=== PATIENT | male | born 1960 | race Hispanic/Latino ===

== ENCOUNTER 2018-06-20 19:05 | Inpatient (IN) | payer MEDICAID ==
--- NOTE | 2018-06-20 19:43 | C.PDOC ---
History Of Present Illness 58 year old male with PMHx of chronic bilateral foot redness for 6 months presents to the ED for evaluation of new onset left upper and left lower extremity weakness since 03:00. Patient states he woke up and fell complete paralysis on both left arm and leg. Patient reports "I could not get out of bed and peed in myself". Patient states his strength is slowly improving throughout the day, left leg "better than before but not baseline". Patient states left arm "not getting as fast as leg" still with persistent weakness but improved from initial. Patient is a smoker. Patient denies fever, chills, nausea, vomit, headache, dizziness, trauma, injury, fall, numbness, history of HTN, DM. NEW ONSET LUE/LLE WEAKNESS SINCE 0300. PS AWOKE FELT COMPLETE PARALYSIS BOTH LEFT ARM AND LEG. "I COULND'T GET OUT OF BED AND PEED ON MYSELF". PS STRENGTH SLOWLY IMPROVING THROUGHOUT DAY, L LEG "BETTER THAN BEFORE BUT NOT AT BASELINE". PS L ARM "NOT GETTING BETTER FAST THE LEG" STILL W PERSIST WEAKNESS BUT IMPROVED FROM INITIAL. NO OTHER ASSOC SX. DENIES HO HTN, DM. +SMOKE, DENIES ETOH OR DRUG USE HO CHRONIC B/L FOOT REDNESS X 6 MO. NO ITCH. NO FEVER EXAM MOD DIST HEENT ATRAUM NEURO SEE [facility] SKIN B/L FEET TINEA PEDIS. EXT ATRAUM REMAINDER NEG Time Seen by Provider: 06/20/18 19:27 Chief Complaint (Nursing): Weakness/Neurological Deficit History Per: Patient History/Exam Limitations: no limitations Onset/Duration Of Symptoms: Hrs (03:00) Current Symptoms Are (Timing): Still Present Recent travel outside of the [place]: No Additional History Per: Patient Past Medical History Reviewed: Historical Data, Nursing Documentation, Vital Signs Vital Signs: Last Vital Signs Temp 98.3 F 06/20/18 19:16 Pulse 78 06/20/18 19:16 Resp 14 06/20/18 19:16 BP 136/84 06/20/18 19:16 Pulse Ox 97 06/20/18 19:16 - Medical History PMH: Asthma, Bipolar Disorder, Depression, Emphysema, HTN, Post Traumatic Stress Disorder, Seizures (alcoholic seziures) Surgical History: No Surg Hx - [facility] Procedures ALCOHOL DETOXIFICATION (09/04/13) OTHER GROUP THERAPY (03/04/13) Family History: States: Unknown Family Hx - Social History Hx Tobacco Use: Yes Hx Alcohol Use: Yes (stopped 5 years ago) Hx Substance Use: Yes - Immunization History Hx Tetanus Toxoid Vaccination: No Hx Influenza Vaccination: No Hx Pneumococcal Vaccination: No Review Of Systems Constitutional: Positive for: Weakness. Negative for: Fever, Chills Eyes: Negative for: Vision Change Cardiovascular: Negative for: Chest Pain, Palpitations Respiratory: Negative for: Shortness of Breath Gastrointestinal: Negative for: Nausea, Vomiting, Abdominal Pain Skin: Negative for: Rash Neurological: Positive for: Weakness. Negative for: Numbness, Headache, Dizziness Physical Exam - Physical Exam Appears: Non-toxic, Other (Moderate distress) Skin: Normal Color, Warm, Dry Head: Atraumatic, Normacephalic Eye(s): bilateral: Normal Inspection, PERRL, EOMI Ear(s): Bilateral: Normal Oral Mucosa: Moist Neck: Normal ROM, Supple Chest: Symmetrical Cardiovascular: Rhythm Regular Respiratory: Normal Breath Sounds, No Rales, No Rhonchi, No Wheezing Gastrointestinal/Abdominal: Soft, No Tenderness, No Guarding, No Rebound Extremity: Bilateral: Atraumatic, Other (bilateral feet tinea pedis) Pulses: Left Dorsalis Pedis: Normal, Right Dorsalis Pedis: Normal Neurological/Psych: Oriented x3, Normal Speech, Normal Cognition, No Normal Motor (right arm and leg normal. Left arm falls before 10 seconds, left leg drifts before 5 seconds), No Other (no limb ataxia) Gait: Steady ED Course And Treatment - Laboratory Results Result Diagrams: 06/20/18 20:08 06/20/18 20:08 O2 Sat by Pulse Oximetry: 97 (ON RA) Pulse Ox Interpretation: Normal - Radiology CXR: Interpreted by Me CXR Interpretation: Yes: No Acute Disease - CT Scan/US Ct head Other Rad Studies (CT/US): Read By Radiologist, Radiology Report Reviewed CT/US Interpretation: EXAM: CT Head without Intravenous Contrast. CLINICAL HISTORY: Left side body weakness. TECHNIQUE: Axial computed tomography images of the head/brain without intravenous contrast. 1169 mGy-cm. COMPARISON: None provided. FINDINGS: BRAIN. Several small hypodense areas in the right superior frontal white matter compatible with age-indeterminate infarcts, probably old. VENTRICLES: No hydrocephalus. ORBITS: The orbits are unremarkable. SINUSES AND MASTOIDS: The paranasal sinuses and mastoid air cells are clear. BONES: No fracture. SOFT TISSUES: Unremarkable. IMPRESSION: Several small hypodense areas in the right superior frontal white matter compatible with age-indeterminate infarcts, probably old. . Electronically signed on Jun 20, 2018 9:23:14 PM EST by: Cameron Victoria M.D., MBA Certified By ABR & CBCCT. Fellowship Trained MRI and CT Specialist CTa neck Other Rad Studies (CT/US): Read By Radiologist, Radiology Report Reviewed CT/US Interpretation: EXAM: CTA Head and Neck with Intravenous Contrast. CLINICAL HISTORY: Left side body weakness. TECHNIQUE: Axial CTA images of the head and neck performed with intravenous contrast. MIP reconstructed images were created and reviewed. 577 mGy-cm. CONTRAST: With; OMNI 350 100MLS was injected intravenously without incident. COMPARISON: None provided. FINDINGS: VASCULATURE: NECK: COMMON CAROTID ARTERIES. No significant canal stenosis. No dissection or occlusion. EXTERNAL CAROTID ARTERIES. Patent. NECK: IN TERNAL CAROTID ARTERIES. Note is made of occlusion of right ICA throughout its course at its origin at the bifurcation. VERTEBRAL ARTERIES. No significant canal stenosis. No dissection or occlusion. HEAD: ANTERIOR CEREBRAL ARTERIES. No significant stenosis. No occlusion. No aneurysm. MIDDLE CEREBRAL ARTERIES. No significant stenosis. No occlusion. No aneurysm. POSTERIOR CEREBRAL ARTERIES. No significant stenosis. No occlusion. No aneurysm. BASILAR ARTERY. No significant stenosis. No occlusion. No aneurysm. OTHER: SOFT TISSUES. No acute finding. BONES. No acute osseous abnormality. MISCELLANEOUS: Scattered upper lobe predominant emphysema is noted. Biapical confluent opacities are noted may represent pneumonia. IMPRESSION: 1. 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 2. Scattered upper lobe predominant emphysema is noted. 3. Biapical confluent opacities are noted may represent pneumonia. Discussed with Dr Medley 9-31pm EST. . Electronically signed on Jun 20, 2018 9:31:44 PM EST by: Cameron Victoria M.D., ATIF Certified By ABR & C BCCT. Fellowship Trained MRI and CT Specialist. NIHSS Stroke Scale - Date/Time Evaluation Performed Date Performed: 06/20/18 Time Performed: 19:39 When Was NIHSS Performed: Baseline - How Severe is the Stroke Level of Consciousness: 0=Alert LOC to Questions: 0=Both comments correct LOC to commands: 0=Obeys both correctly Best Gaze: 0=Normal Visual: 0=No visual loss Facial: 0=Normal Motor Arm - Left: 2=Falls before 10 sec Motor Arm - Right: 0=No drift Motor Leg - Left: 1=Drift before 5 sec Motor Leg - Right: 0=No drift Limb Ataxia: 0=Absent Sensory: 0=Normal Best Language: 0=No aphasia Dysarthia: 0=Normal articulation Extinction & Inattention (Neglect): 0=Normal, no object Score: 3 NIHSS Stroke Scale 2 - Date/Time Evaluation Performed Date Performed: 06/20/18 Time Performed: 21:56 When Was NIHSS Performed: Code Stroke Re-evaluation - How Severe is the Stroke Level of Consciousness: 0=Alert LOC to Questions: 0=Both comments correct LOC to commands: 0=Obeys both correctly Best Gaze: 0=Normal Visual: 0=No visual loss Facial: 0=Normal Motor Arm - Left: 2=Falls before 10 sec Motor Arm - Right: 0=No drift Motor Leg - Left: 1=Drift before 5 sec Motor Leg - Right: 0=No drift Limb Ataxia: 0=Absent Sensory: 0=Normal Best Language: 0=No aphasia Dysarthia: 0=Normal articulation Extinction & Inattention (Neglect): 0=Normal, no object Score: 3 Progress - Re-Evaluation Re-evaluation Note: 06/20/18 20:45 d/w dr buckley. CT PENDING. AWARE OF ER FINDINGS. PT NOT TPA CANDIDATE AT THIS TIME. 06/20/18 21:27 D/W [facility] RAD: +OCCLUSION R INT CAROTID; HYPODENSE R FRONTAL LOBE, CHRONIC INFARCT; 06/20/18 21:52 D/W DR Emilie LUNA MED SOCIAL SERVICE TECHNICIAN WILL ADMIT. CRESTOR 10 MG D/W DR BUCKLEY AWARE OF CT FINDINGS. NO HEPARIN, ADVISES ASA AND PLAVIX - Data Reviewed Data Reviewed: Lab, Diagnostic imaging, EKG - Critical Care Citical Care: Excluding Proc Time Critical Care Time: 90 minutes - Continuity of Care Discussed patient case with:: Patient, On-call PMD-pt unassigned rTPA Inclusion/Exclusion - Refusal of Treatment Patient Refused Treatment: No - Inclusion Criteria for Altepase Patient is 18 years or Older: Yes The Clinical Diagnosis of Ischemic Stroke That is Causing a Potentially Disabling Neurological Deficit: Yes Time of Onset is Well Established to be Less Than 270 Minute Before Treatment Would Begin: No Risk/Benefit Discussed With Patient/Family Member Present: Yes - Exclusion Criteria for Altepase Uncontrolled Hypertension at Time of Treatment (Systolic BP above 185 or Diastolic BP above 110 mmHg): No Active Internal Bleeding: No Known Bleeding Diathesis Including but Not Limited to: Platelets Below 100,000/mm,PTT Above 40 sec After Heparin Use, Current Use of Oral Anitcoagulant With INR Greater Than 1.7 or PT Greater Than 15 secs: No Evidence of an Intracranial Hemorrhage: No Evidence of Major Acute Infarct With Signs Greater Than 1/3 MCA Territory: No Suspicion of Subarachnoid Hemorrhage on Pretreatment Evaluation Even if CT Head Negative For Hemorrhage: No - Warning to TPA With Conditions Following Conditions Weighed Against Anticipated Benefit: Yes Condition: Stroke Serevity Too Mild, Rapid Improvement Medical Decision Making Medical Decision Making: Plan: * Labs * CT head * EKG * Labs * CXR * Aspirin 324 mg PO * IV fluids Disposition Counseled Patient/Family Regarding: Studies Performed, Diagnosis - Disposition Disposition: HOSPITALIZED Disposition Time: 21:55 Condition: SERIOUS - Clinical Impression Clinical Impression: CVA (cerebral vascular accident) - Scribe Statement The provider has reviewed the documentation as recorded by the Scribe Bo Silva All medical record entries made by the Scribe were at my direction and personally dictated by me. I have reviewed the chart and agree that the record accurately reflects my personal performance of the history, physical exam, medical decision making, and the department course for this patient. I have also personally directed, reviewed, and agree with the discharge instructions and disposition.
[2018-06-20 20:13] LABS: BASO # 0.1 K/uL (0.0-0.2); BASO % 0.9 % (0.0-2.0); EOS # 0.2 K/uL (0.0-0.7); EOS % 1.7 % (0.0-4.0); HEMOGLOBIN 14.1 g/dL (12.0-18.0); LYMPH # 2.8 K/uL (1.0-4.3); LYMPH % 25.2 % (20.0-40.0); MEAN CELL VOLUME 90.8 fL (80.0-94.0); MEAN CORPUSCULAR HGB CONC 35.2 g/dL (33.0-37.0); MEAN PLATELET VOLUME 6.4 fL (7.2-11.7); MONO # 0.9 K/uL (0.0-0.8); MONO % 8.3 % (0.0-10.0); NEUT % 63.9 % (50.0-75.0); NRBC % 0.1 % (0.0-2.0); RBC 4.4 Mil/uL (4.40-5.90)
[2018-06-20 20:22] LABS: PROTHROMBIN TIME 10.9 SECONDS (9.7-12.2)
[2018-06-20] MEDS ORDERED: Sodium Chloride 0.9% 1,000 ML ONE (20:22)
[2018-06-20] MEDS: Sodium Chloride 0.9% 1,000 ML IV SCH (20:22)
[2018-06-20 20:26] LABS: ALB/GLOB RATIO 1.3 (1.0-2.1); ALBUMIN 4.2 g/dL (3.5-5.0); ALT/SGPT 40 U/L (21-72); AST/SGOT 25 U/L (17-59); BLOOD UREA NITROGEN 16 mg/dL (9-20); CALCIUM 9.6 mg/dl (8.6-10.4); GFR NON-AFRICAN AMERICAN > 60; HDL CHOLESTEROL 46 mg/dL (30-70)
[2018-06-20 20:36] LABS: LDL CHOLESTEROL 160 mg/dL (0-129)
[2018-06-20] MEDS ORDERED: Iohexol 350mg/ml 100 ML ONE (20:44)
[2018-06-21 04:27] LABS: BASO # 0.1 K/uL (0.0-0.2); BASO % 0.9 % (0.0-2.0); EOS # 0.3 K/uL (0.0-0.7); EOS % 2.6 % (0.0-4.0); HEMOGLOBIN 13.7 g/dL (12.0-18.0); LYMPH # 3.3 K/uL (1.0-4.3); LYMPH % 33.8 % (20.0-40.0); MEAN CELL VOLUME 91.1 fL (80.0-94.0); MEAN CORPUSCULAR HEMOGLOBIN 31.8 pg (27.0-31.0); MEAN CORPUSCULAR HGB CONC 34.8 g/dL (33.0-37.0); MEAN PLATELET VOLUME 6.3 fL (7.2-11.7); MONO # 0.8 K/uL (0.0-0.8); MONO % 8.4 % (0.0-10.0); NEUT # 5.2 K/uL (1.8-7.0); NEUT % 54.3 % (50.0-75.0); RBC 4.32 Mil/uL (4.40-5.90); WHITE BLOOD COUNT 9.6 K/uL (4.8-10.8)
[2018-06-21 04:50] LABS: ALB/GLOB RATIO 1.4 (1.0-2.1); ALBUMIN 3.7 g/dL (3.5-5.0); ALT/SGPT 37 U/L (21-72); AST/SGOT 23 U/L (17-59); BLOOD UREA NITROGEN 11 mg/dL (9-20); CALCIUM 8.9 mg/dl (8.6-10.4); GFR NON-AFRICAN AMERICAN > 60
[2018-06-21] MEDS: Sodium Chloride 0.9% 1,000 ML IV SCH ×2 (08:00→16:00)
--- NOTE | 2018-06-21 10:49 | CT ---
Date of service: 06/20/2018 PROCEDURE: CT HEAD WITHOUT CONTRAST. HISTORY: L SIDED WEAKNESS COMPARISON: Correlation made with concurrent CTA neck and brain TECHNIQUE: Axial computed tomography images were obtained through the head/brain without intravenous contrast. Radiation dose: Total exam DLP = 1169.87 mGy-cm. This CT exam was performed using one or more of the following dose reduction techniques: Automated exposure control, adjustment of the mA and/or kV according to patient size, and/or use of iterative reconstruction technique. FINDINGS: HEMORRHAGE: No intracranial hemorrhage. BRAIN: There are small chronic appearing infarcts seen in the deep white matter right cerebral hemisphere (right centrum semiovale). Smaller ischemic changes also seen in the right frontal subcortical region. Note that the possibility of a small hyperacute infarct cannot be excluded on this study. Clinical correlation recommended Mild generalized volume loss. There are no obvious parenchymal nor extra-axial masses or collections seen on this noncontrast study. Mild vascular calcifications both carotid siphons. VENTRICLES: No the the obstructive hydrocephalus. CALVARIUM: Unremarkable. PARANASAL SINUSES: Unremarkable as visualized. No significant inflammatory changes. MASTOID AIR CELLS: Unremarkable as visualized. No inflammatory changes. OTHER FINDINGS: None. IMPRESSION: No acute intracranial hemorrhage. There are small chronic appearing infarcts seen in the deep white matter right cerebral hemisphere (right centrum semiovale). Smaller ischemic changes also seen in the right frontal subcortical region. Note that the possibility of a small hyperacute infarct cannot be excluded on this study. Clinical correlation recommended Mild generalized volume loss.
[2018-06-21] MEDS: Pantoprazole 40 mg EC Tab PO SCH (11:00)
--- NOTE | 2018-06-21 12:31 | CT ---
Date of service: 06/20/2018. PROCEDURE: CT Angiography of the neck and brain with contrast HISTORY: L SIDED WEAKNESS. COMPARISON: Comparison made with concurrent noncontrast CT scan of the brain. TECHNIQUE: Contiguous helical/transaxial images of the neck were obtained from the level of the skull-base to the superior mediastinum in the arteriographic phase of enhancement. Coronal and sagittal reformats or also generated. IV contrast dose: 100 cc Visipaque 320 Radiation dose: Total exam DLP = 577.05 mGy-cm. This CT exam was performed using one or more of the following dose reduction techniques: Automated exposure control, adjustment of the mA and/or kV according to patient size, and/or use of iterative reconstruction technique.. FINDINGS: The aortic arch is patent however there are minor calcified atherosclerotic plaque changes along the aortic arch as well as the origins of the great vessels which are also patent. CAROTID ARTERIES: The right common carotid artery is patent however there is partially calcified atherosclerotic plaque at the level of the carotid bifurcation with complete occlusion of the right internal carotid artery.. The The left common carotid artery is also patent. There is calcified atherosclerotic plaque seen at the left carotid bifurcation-proximal left internal carotid artery which results in approximately 55-50 % diameter narrowing.. The left internal carotid artery is patent.. There is mild moderate partially calcified plaque at the level of the left carotid siphon. VERTEBRAL ARTERIES: The right and left vertebral arteries are patent and appear codominant throughout. Basilar artery is patent. OTHER FINDINGS: The right supraclinoid carotid artery is occluded however there is opacification of both A1 segments as well as the anterior communicating artery. The A2 segments are also patent and appear relatively symmetric. There is minor asymmetry of the M1 segments left-sided which is slightly larger in caliber than the right side. The distal branches of the middle cerebral arteries appear patent and relatively symmetric as well. The posterior cerebral arteries are patent and also appear relatively symmetric. No evidence of large aneurysm nor vascular malformation. Centrilobular emphysematous changes seen in the lung apices and upper lung berg. Note made of a small approximately 5 mm somewhat translucent appearing nodular opacity in the right lung apex nonspecific though could be postinflammatory. 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 Partially calcified plaque left carotid bifurcation-proximal left internal carotid artery which results in narrowing approximately 52-50 5 percent %percent%. [id number] partially calcified atherosclerotic plaque left carotid siphon. The visualized intra the cerebral circulation is patent. No evidence of large aneurysm nor vascular malformation. 5 mm somewhat translucent appearing nodular opacity in the right lung apex nonspecific though could be postinflammatory. Follow-up nonemergent CT scan of the chest recommended for further evaluation Centrilobular emphysematous changes seen in the upper lung berg. Note this report was placed in [facility] review folder for follow up.
[2018-06-21] MEDS ORDERED: Enoxaparin 40 mg Syringe SC SCH (12:45)
--- NOTE | 2018-06-21 13:58 | CP.PCM.CON ---
History of Present Illness - History of Present Illness History of Present Illness: Neurology Consultation Note: Mr. Shin is a 58-year-old man with a past medical history of Asthma, Bipol ar Disorder, Depression, Emphysema, HTN, Post Traumatic Stress Disorder, Seizures (alcoholic seziures), who presented to the ED in the AM after waking up with left side weakness. He was last normal the previous night, but had been having some left side weakness intermittently for several days. A non-contrast CT scan of the head was done and showed chronic right cerebral infarcts. CTA of the head/neck showed complete right ICA occlusion. He was not a candidate for IV tPA due to being outside the time window and was not a candidate for thrombectomy due to infarcts appearing on CT head in right cerebral region that were likely chronic or subacute. Today, the patient is significantly improved and is able to move his left side with more strength. He still has some sensory changes. Review of Systems - Constitutional Constitutional: As Per HPI - EENT Eyes: Loss of Vision Ears: absent: As Per HPI, Decreased Hearing, Ear Discharge, Ear Pain, Tinnitus, Abnormal Hearing, Disequilibrium, Dizziness, Other Nose/Mouth/Throat: absent: As Per HPI, Epistaxis, Nasal Congestion, Nasal Discharge, Nasal Obstruction, Nasal Trauma, Nose Pain, Post Nasal Drip, Sinus Pain, Sinus Pressure, Bleeding Gums, Change in Voice, Dental Pain, Dry Mouth, D ysphagia, Halitosis, Hoarsness, Lip Swelling, Mouth Lesions, Mouth Pain, Odynophagia, Sore Throat, Throat Swelling, Tongue Swelling, Facial Pain, Neck Pain, Neck Mass, Other - Cardiovascular Cardiovascular: absent: As Per HPI, Acrocyanosis, Chest Pain, Chest Pain at Rest, Chest Pain with Activity, Claudication, Diaphoresis, Dyspnea, Dyspnea on Exertion, Edema, Irregular Heart Rhythm, Pain Radiating to Arm/Neck/Jaw, Leg Edema, Leg Ulcers, Lightheadedness, Orthopnea, Palpitations, Paroxysmal Nocturnal Dyspnea, Pedal Edema, Radiating Pain, Rapid Heart Rate, Slow Heart Rate, Syncope, Other - Respiratory Respiratory: absent: As Per HPI, Cough, Dyspnea, Hemoptysis, Dyspnea on Exertion, Wheezing, Snoring, Stridor, Pain on Inspiration, Chest Congestion, Excessive Mucous Production, Change in Mucous Color, Pain with Coughing, Other - Gastrointestinal Gastrointestinal: absent: As Per HPI, Abdominal Pain, Belching, Bloating, Change in Bowel Habits, Change in Stool Character, Coffee Ground Emesis, Constipation, Cramping, Diarrhea, Dyspepsia, Dysphagia, Early Satiety, Excessive Flatus, Fecal Incontinence, Heartburn, Hematemesis, Hematochezia, Loose Stools, Melena, Nausea, Odynophagia, Temesmus, Vomiting, Other - Genitourinary Genitourinary: absent: Change in Urinary Stream, Difficulty Urinating, Dysuria, Flank Pain, Hematuria, Pyuria, Nocturia, Urinary Incontinence, Urinary Frequency, Urinary Hesitance, Urinary Urgency, Voiding Freq/Small Amts, Freq UTI, Hx Renal/Bladder Calculi, Hx /Renal Surgery, Bladder Distension, Other - Musculoskeletal Musculoskeletal: absent: As Per HPI, Abnormal Gait, Arthralgias, Atrophy, Back Pain, Deformity, Joint Swelling, Limited Range of Motion, Loss of Height, Muscle Cramps, Muscle Weakness, Myalgias, Neck Pain, Numbness, Radiating Pain into Limb, Stiffness, Tingling, Other - Integumentary Integumentary: absent: As Per HPI, Acne, Alopecia, Bleeding Lesions, Change in Hair, Change in Nails, Change in Pigmentation, Changing Lesions, Dry Skin, Erythema, Furuncle, Hirsutism, Lesions, New Lesions, Non-Healing Lesions, Photosensitivity, Pruritus, Rash, Skin Pain, Skin Ulcer, Sores, Striae, Swelling, Unusual Bruising, Wounds, Jaundice, Other - Neurological Neurological: As Per HPI - Psychiatric Psychiatric: absent: As Per HPI, Abnormal Sleep Pattern, Anhedonia, Anxiety, Auditory Hallucinations, Behavioral Changes, Change in Appetite, Change in Libido, Confusion, Depression, Difficulty Concentrating, Hallucinations, Homicidal Ideation, Hopelessness, Irritability, Memory Loss, Mood Swings, Panic Attacks, Paranoia, Suicidal Ideation, Visual Hallucinations, Tactile Hallucinations, Other - Endocrine Endocrine: absent: As Per HPI, Change in Body Appearance, Change in Libido, Cold Intolorance, Deepening of Voice, Excessive Sweating, Fatigue, Flushing, Heat Intolorance, Increase in Ring/Shoe/Hat Size, Palpitations, Polydipsia, Polyphagia, Polyuria, Other - Hematologic/Lymphatic Hematologic: absent: As Per HPI, Easy Bleeding, Easy Bruising, Lymphadenopathy, Other Past Patient History - Past Social History Smoking Status: Heavy Smoker > 10 Cigarettes Daily - CARDIAC Hx Hypertension: Yes - PULMONARY Hx Asthma: Yes Hx Emphysema: Yes - NEUROLOGICAL Hx Seizures: Yes (alcoholic seziures) - HEMATOLOGICAL/ONCOLOGICAL Hx Cancer: No - MUSCULOSKELETAL/RHEUMATOLOGICAL Hx Falls: No - GASTROINTESTINAL Other/Comment: RECTAL BLEEDING - PSYCHIATRIC Hx Substance Use: Yes (cannobis) - SURGICAL HISTORY Hx Surgeries: Yes Hx Orthopedic Surgery: Yes (RIGHT 4TH FINGER) Meds Allergies/Adverse Reactions: Allergies Allergy/AdvReac Type Severity Reaction Status Date / Time No Known Allergies Allergy Verified 06/20/18 19:21 - Medications Medications: Current Medications Aspirin (Aspirin) 325 mg PO DAILY [facility] Last Admin: 06/21/18 13:12 Dose: 325 mg Clopidogrel Bisulfate (Plavix) 75 mg PO DAILY [facility] Last Admin: 06/21/18 13:12 Dose: 75 mg Heparin Sodium (Porcine) (Heparin) 5,000 units SC Q12 [facility] Last Admin: 06/21/18 11:00 Dose: 5,000 units Sodium Chloride (Sodium Chloride 0.9%) 1,000 mls @ 100 mls/hr IV .Q10H [facility] Last Admin: 06/21/18 08:00 Dose: 100 mls/hr Pantoprazole Sodium (Protonix Ec Tab) 40 mg PO DAILY [facility] Last Admin: 06/21/18 11:00 Dose: 40 mg Pneumococcal Polyvalent Vaccine (Pneumovax 23 Vaccine) 0.5 ml IM .ONCE ONE Stop: 06/23/18 10:01 Rosuvastatin Calcium (Crestor) 10 mg PO [facility] Physical Exam - Constitutional Appears: Well - Head Exam Head Exam: ATRAUMATIC, NORMAL INSPECTION, NORMOCEPHALIC - Eye Exam Eye Exam: EOMI, Normal appearance, PERRL Pupil Exam: NORMAL ACCOMODATION, PERRL - ENT Exam ENT Exam: Mucous Membranes Moist, Normal Exam - Neck Exam Neck exam: Positive for: Normal Inspection - Respiratory Exam Respiratory Exam: Clear to Auscultation Bilateral, NORMAL BREATHING PATTERN - Cardiovascular Exam Cardiovascular Exam: Bradycardia, +S1, +S2 - GI/Abdominal Exam GI & Abdominal Exam: Normal Bowel Sounds, Soft. absent: Tenderness - Rectal Exam Rectal Exam: Deferred - Extremities Exam Extremities exam: Positive for: normal inspection - Back Exam Back exam: NORMAL INSPECTION - Neurological Exam Neurological exam: Abnormal Gait, Alert, CN II-XII Intact, Oriented x3 Additional comments: Slight left side weakness with slight sensory change. Reflexes brisk on the left. NIHSS of 3. Results - Vital Signs Recent Vital Signs: Last Vital Signs Temp 97.5 F L 06/21/18 12:07 Pulse 69 06/21/18 12:07 Resp 20 06/21/18 12:07 BP 174/88 H 06/21/18 12:07 Pulse Ox 96 06/21/18 12:07 - Labs Result Diagrams: 06/21/18 04:17 06/21/18 04:17 Labs: Laboratory Results - last 24 hr 06/20/18 06/20/18 06/20/18 20:08 20:08 20:08 WBC 11.0 H RBC 4.40 Hgb 14.1 Hct 40.0 MCV 90.8 D MCH 32.0 H MCHC 35.2 RDW 14.0 Plt Count 288 MPV 6.4 L Neut % (Auto) 63.9 Lymph % (Auto) 25.2 [place] % (Auto) 8.3 Eos % (Auto) 1.7 Baso % (Auto) 0.9 Neut # (Auto) 7.0 Lymph # (Auto) 2.8 [place] # (Auto) 0.9 H Eos # (Auto) 0.2 Baso # (Auto) 0.1 PT 10.9 INR 1.0 APTT 38 H Sodium 139 Potassium 4.3 Chloride 105 Carbon Dioxide 24 Anion Gap 14 BUN 16 Creatinine 0.8 Est GFR ( Amer) > 60 Est GFR (Non-Af Amer) > 60 Random Glucose 96 Hemoglobin A1c Calcium 9.6 Total Bilirubin 0.4 AST 25 ALT 40 Alkaline Phosphatase 82 Troponin I < 0.0120 Total Protein 7.2 Albumin 4.2 Globulin 3.1 Albumin/Globulin Ratio 1.3 Triglycerides 195 H Cholesterol 234 H LDL Cholesterol Direct 160 H HDL Cholesterol 46 Blood Type Antibody Screen 06/20/18 06/20/18 06/21/18 20:08 20:08 04:17 WBC RBC Hgb Hct MCV MCH MCHC RDW Plt Count MPV Neut % (Auto) Lymph % (Auto) [place] % (Auto) Eos % (Auto) Baso % (Auto) Neut # (Auto) Lymph # (Auto) [place] # (Auto) Eos # (Auto) Baso # (Auto) PT INR APTT Sodium 140 Potassium 3.7 Chloride 106 Carbon Dioxide 26 Anion Gap 11 BUN 11 Creatinine 0.7 L Est GFR ( Amer) > 60 Est GFR (Non-Af Amer) > 60 Random Glucose 108 Hemoglobin A1c 5.6 Calcium 8.9 Total Bilirubin 0.5 AST 23 ALT 37 Alkaline Phosphatase 70 Troponin I Total Protein 6.5 Albumin 3.7 Globulin 2.8 Albumin/Globulin Ratio 1.4 Triglycerides Cholesterol LDL Cholesterol Direct HDL Cholesterol Blood Type O NEGATIVE Antibody Screen Negative 06/21/18 04:17 WBC 9.6 RBC 4.32 L Hgb 13.7 Hct 39.3 MCV 91.1 MCH 31.8 H MCHC 34.8 RDW 14.0 Plt Count 282 MPV 6.3 L Neut % (Auto) 54.3 Lymph % (Auto) 33.8 [place] % (Auto) 8.4 Eos % (Auto) 2.6 Baso % (Auto) 0.9 Neut # (Auto) 5.2 Lymph # (Auto) 3.3 [place] # (Auto) 0.8 Eos # (Auto) 0.3 Baso # (Auto) 0.1 PT INR APTT Sodium Potassium Chloride Carbon Dioxide Anion Gap BUN Creatinine Est GFR ( Amer) Est GFR (Non-Af Amer) Random Glucose Hemoglobin A1c Calcium Total Bilirubin AST ALT Alkaline Phosphatase Troponin I Total Protein Albumin Globulin Albumin/Globulin Ratio Triglycerides Cholesterol LDL Cholesterol Direct HDL Cholesterol Blood Type Antibody Screen Assessment & Plan (1) CVA (cerebral vascular accident) Assessment and Plan: May be due to underlying medical problems, or could be due to underlying cardiac disease. The right carotid appears to be chronically occluded. This is likely due to his chronic smoking of about 40 pack-years. I recommend the followin. Telemetry 2. MRI brain without contrast 3. Echocardiogram with bubble study 4. Fluids with NS at 100 mL/hr 5. Check lipid panel, HbA1c, B12, folate, vitamin D levels, homocysteine levels 6. PT/OT eval and treatment 7. Load with Plavix 300 mg once, and continue 75 mg daily along with Aspirin 81 mg daily 8. Case management consult Thank you for this consultation. Status: Acute
--- NOTE | 2018-06-21 14:09 | CP.PCM.HP ---
Past Patient History - Past Social History Smoking Status: Heavy Smoker > 10 Cigarettes Daily - CARDIAC Hx Hypertension: Yes - PULMONARY Hx Asthma: Yes Hx Emphysema: Yes - NEUROLOGICAL Hx Seizures: Yes (alcoholic seziures) - HEMATOLOGICAL/ONCOLOGICAL Hx Cancer: No - MUSCULOSKELETAL/RHEUMATOLOGICAL Hx Falls: No - GASTROINTESTINAL Other/Comment: RECTAL BLEEDING - PSYCHIATRIC Hx Substance Use: Yes (cannobis) - SURGICAL HISTORY Hx Surgeries: Yes Hx Orthopedic Surgery: Yes (RIGHT 4TH FINGER) Meds Allergies/Adverse Reactions: Allergies Allergy/AdvReac Type Severity Reaction Status Date / Time No Known Allergies Allergy Verified 06/20/18 19:21 Physical Exam - Constitutional Appears: Well - Head Exam Head Exam: ATRAUMATIC, NORMAL INSPECTION, NORMOCEPHALIC - Eye Exam Eye Exam: EOMI, Normal appearance, PERRL Pupil Exam: NORMAL ACCOMODATION, PERRL - ENT Exam ENT Exam: Mucous Membranes Moist, Normal Exam - Neck Exam Neck exam: Positive for: Normal Inspection - Respiratory Exam Respiratory Exam: Decreased Breath Sounds - Cardiovascular Exam Cardiovascular Exam: REGULAR RHYTHM, +S1, +S2 - GI/Abdominal Exam GI & Abdominal Exam: Diminished Bowel Sounds, Soft - Rectal Exam Rectal Exam: Deferred Results - Vital Signs Recent Vital Signs: Last Vital Signs Temp 97.5 F L 06/21/18 12:07 Pulse 69 06/21/18 12:07 Resp 20 06/21/18 12:07 BP 174/88 H 06/21/18 12:07 Pulse Ox 96 06/21/18 12:07 - Labs Result Diagrams: 06/21/18 04:17 06/21/18 04:17 Labs: Laboratory Results - last 24 hr 06/20/18 06/20/18 06/20/18 20:08 20:08 20:08 WBC 11.0 H RBC 4.40 Hgb 14.1 Hct 40.0 MCV 90.8 D MCH 32.0 H MCHC 35.2 RDW 14.0 Plt Count 288 MPV 6.4 L Neut % (Auto) 63.9 Lymph % (Auto) 25.2 [place] % (Auto) 8.3 Eos % (Auto) 1.7 Baso % (Auto) 0.9 Neut # (Auto) 7.0 Lymph # (Auto) 2.8 [place] # (Auto) 0.9 H Eos # (Auto) 0.2 Baso # (Auto) 0.1 PT 10.9 INR 1.0 APTT 38 H Sodium 139 Potassium 4.3 Chloride 105 Carbon Dioxide 24 Anion Gap 14 BUN 16 Creatinine 0.8 Est GFR ( Amer) > 60 Est GFR (Non-Af Amer) > 60 Random Glucose 96 Hemoglobin A1c Calcium 9.6 Total Bilirubin 0.4 AST 25 ALT 40 Alkaline Phosphatase 82 Troponin I < 0.0120 Total Protein 7.2 Albumin 4.2 Globulin 3.1 Albumin/Globulin Ratio 1.3 Triglycerides 195 H Cholesterol 234 H LDL Cholesterol Direct 160 H HDL Cholesterol 46 Blood Type Antibody Screen 06/20/18 06/20/18 06/21/18 20:08 20:08 04:17 WBC RBC Hgb Hct MCV MCH MCHC RDW Plt Count MPV Neut % (Auto) Lymph % (Auto) [place] % (Auto) Eos % (Auto) Baso % (Auto) Neut # (Auto) Lymph # (Auto) [place] # (Auto) Eos # (Auto) Baso # (Auto) PT INR APTT Sodium 140 Potassium 3.7 Chloride 106 Carbon Dioxide 26 Anion Gap 11 BUN 11 Creatinine 0.7 L Est GFR ( Amer) > 60 Est GFR (Non-Af Amer) > 60 Random Glucose 108 Hemoglobin A1c 5.6 Calcium 8.9 Total Bilirubin 0.5 AST 23 ALT 37 Alkaline Phosphatase 70 Troponin I Total Protein 6.5 Albumin 3.7 Globulin 2.8 Albumin/Globulin Ratio 1.4 Triglycerides Cholesterol LDL Cholesterol Direct HDL Cholesterol Blood Type O NEGATIVE Antibody Screen Negative 06/21/18 04:17 WBC 9.6 RBC 4.32 L Hgb 13.7 Hct 39.3 MCV 91.1 MCH 31.8 H MCHC 34.8 RDW 14.0 Plt Count 282 MPV 6.3 L Neut % (Auto) 54.3 Lymph % (Auto) 33.8 [place] % (Auto) 8.4 Eos % (Auto) 2.6 Baso % (Auto) 0.9 Neut # (Auto) 5.2 Lymph # (Auto) 3.3 [place] # (Auto) 0.8 Eos # (Auto) 0.3 Baso # (Auto) 0.1 PT INR APTT Sodium Potassium Chloride Carbon Dioxide Anion Gap BUN Creatinine Est GFR ( Amer) Est GFR (Non-Af Amer) Random Glucose Hemoglobin A1c Calcium Total Bilirubin AST ALT Alkaline Phosphatase Troponin I Total Protein Albumin Globulin Albumin/Globulin Ratio Triglycerides Cholesterol LDL Cholesterol Direct HDL Cholesterol Blood Type Antibody Screen
--- NOTE | 2018-06-21 14:38 | RAD ---
Date of service: 06/20/2018 HISTORY: Code Stroke COMPARISON: Comparison chest dated 09/28/2013 FINDINGS: LUNGS: No active pulmonary disease. PLEURA: No significant pleural effusion identified, no pneumothorax apparent. Minor biapical pleural thickening CARDIOVASCULAR: No aortic atherosclerotic calcification present.. Normal cardiac size. No pulmonary vascular congestion. OSSEOUS STRUCTURES: No significant abnormalities. VISUALIZED UPPER ABDOMEN: Normal. OTHER FINDINGS: None. IMPRESSION: No active disease.
--- NOTE | 2018-06-21 17:39 | CP.PCM.CON ---
History of Present Illness - History of Present Illness History of Present Illness: 58 y/o with acute R. sided CVA CT head : R. cerebral infarcts; occluded MONTSE and moderate LICA disease: now on DAPT PMHX: Asthma, Bipolar Disorder, Depression, Emphysema, HTN, Post Traumatic Stress Disorder, Seizures (alcoholic seziures) SOCHX: 40 pack year smoking Past Patient History - Past Medical History & Family History Past Medical History?: Yes - Past Social History Smoking Status: Heavy Smoker > 10 Cigarettes Daily - CARDIAC Hx Hypertension: Yes - PULMONARY Hx Asthma: Yes Hx Emphysema: Yes - NEUROLOGICAL Hx Seizures: Yes (alcoholic seziures) - HEENT Hx Blind: Yes (periods of blindness) - RENAL Hx Chronic Kidney Disease: Yes - ENDOCRINE/METABOLIC Hx Endocrine Disorders: Yes - HEMATOLOGICAL/ONCOLOGICAL Hx Cancer: No - INTEGUMENTARY Hx Dermatological Problems: No - MUSCULOSKELETAL/RHEUMATOLOGICAL Hx Falls: No - GASTROINTESTINAL Other/Comment: RECTAL BLEEDING - PSYCHIATRIC Hx Substance Use: Yes (cannobis) - SURGICAL HISTORY Hx Surgeries: Yes Hx Orthopedic Surgery: Yes (RIGHT 4TH FINGER) - ANESTHESIA Hx Anesthesia: Yes Meds Allergies/Adverse Reactions: Allergies Allergy/AdvReac Type Severity Reaction Status Date / Time No Known Allergies Allergy Verified 06/20/18 19:21 - Medications Medications: Current Medications Aspirin (Aspirin) 325 mg PO DAILY [facility] Last Admin: 06/21/18 13:12 Dose: 325 mg Clopidogrel Bisulfate (Plavix) 75 mg PO DAILY [facility] Last Admin: 06/21/18 13:12 Dose: 75 mg Heparin Sodium (Porcine) (Heparin) 5,000 units SC Q12 [facility] Last Admin: 06/21/18 11:00 Dose: 5,000 units Sodium Chloride (Sodium Chloride 0.9%) 1,000 mls @ 100 mls/hr IV .Q10H [facility] Last Admin: 06/21/18 16:00 Dose: Not Given Pantoprazole Sodium (Protonix Ec Tab) 40 mg PO DAILY [facility] Last Admin: 06/21/18 11:00 Dose: 40 mg Pneumococcal Polyvalent Vaccine (Pneumovax 23 Vaccine) 0.5 ml IM .ONCE ONE Stop: 06/23/18 10:01 Rosuvastatin Calcium (Crestor) 10 mg PO [facility] Physical Exam - Constitutional Appears: No Acute Distress - Head Exam Head Exam: ATRAUMATIC, NORMAL INSPECTION, NORMOCEPHALIC - Eye Exam Eye Exam: EOMI, Normal appearance, PERRL - ENT Exam ENT Exam: Mucous Membranes Moist, Normal Oropharynx - Neck Exam Neck exam: Positive for: Full Rom, Normal Inspection. Negative for: Tenderness - Respiratory Exam Respiratory Exam: Clear to Auscultation Bilateral. absent: Rhonchi, Wheezes - Cardiovascular Exam Cardiovascular Exam: REGULAR RHYTHM, +S1, +S2. absent: Systolic Murmur - GI/Abdominal Exam GI & Abdominal Exam: Normal Bowel Sounds, Soft. absent: Tenderness - Extremities Exam Extremities exam: Positive for: calf tenderness, normal inspection. Negative for: pedal edema, pedal pulses present - Neurological Exam Neurological exam: Alert, Oriented x3 - Psychiatric Exam Psychiatric exam: Normal Affect, Normal Mood - Skin Skin Exam: Normal Color, Warm Results - Vital Signs Recent Vital Signs: Last Vital Signs Temp 97.8 F 06/21/18 15:58 Pulse 65 06/21/18 15:58 Resp 20 06/21/18 15:58 BP 161/81 H 06/21/18 15:58 Pulse Ox 95 06/21/18 15:58 - Labs Result Diagrams: 06/21/18 04:17 06/21/18 04:17 Labs: Laboratory Results - last 24 hr 06/20/18 06/20/18 06/20/18 20:08 20:08 20:08 WBC 11.0 H RBC 4.40 Hgb 14.1 Hct 40.0 MCV 90.8 D MCH 32.0 H MCHC 35.2 RDW 14.0 Plt Count 288 MPV 6.4 L Neut % (Auto) 63.9 Lymph % (Auto) 25.2 [place] % (Auto) 8.3 Eos % (Auto) 1.7 Baso % (Auto) 0.9 Neut # (Auto) 7.0 Lymph # (Auto) 2.8 [place] # (Auto) 0.9 H Eos # (Auto) 0.2 Baso # (Auto) 0.1 PT 10.9 INR 1.0 APTT 38 H Sodium 139 Potassium 4.3 Chloride 105 Carbon Dioxide 24 Anion Gap 14 BUN 16 Creatinine 0.8 Est GFR ( Amer) > 60 Est GFR (Non-Af Amer) > 60 Random Glucose 96 Hemoglobin A1c Calcium 9.6 Total Bilirubin 0.4 AST 25 ALT 40 Alkaline Phosphatase 82 Troponin I < 0.0120 Total Protein 7.2 Albumin 4.2 Globulin 3.1 Albumin/Globulin Ratio 1.3 Triglycerides 195 H Cholesterol 234 H LDL Cholesterol Direct 160 H HDL Cholesterol 46 Blood Type Antibody Screen 06/20/18 06/20/18 06/21/18 20:08 20:08 04:17 WBC RBC Hgb Hct MCV MCH MCHC RDW Plt Count MPV Neut % (Auto) Lymph % (Auto) [place] % (Auto) Eos % (Auto) Baso % (Auto) Neut # (Auto) Lymph # (Auto) [place] # (Auto) Eos # (Auto) Baso # (Auto) PT INR APTT Sodium 140 Potassium 3.7 Chloride 106 Carbon Dioxide 26 Anion Gap 11 BUN 11 Creatinine 0.7 L Est GFR ( Amer) > 60 Est GFR (Non-Af Amer) > 60 Random Glucose 108 Hemoglobin A1c 5.6 Calcium 8.9 Total Bilirubin 0.5 AST 23 ALT 37 Alkaline Phosphatase 70 Troponin I Total Protein 6.5 Albumin 3.7 Globulin 2.8 Albumin/Globulin Ratio 1.4 Triglycerides Cholesterol LDL Cholesterol Direct HDL Cholesterol Blood Type O NEGATIVE Antibody Screen Negative 06/21/18 06/21/18 04:17 16:25 WBC 9.6 RBC 4.32 L Hgb 13.7 Hct 39.3 MCV 91.1 MCH 31.8 H MCHC 34.8 RDW 14.0 Plt Count 282 MPV 6.3 L Neut % (Auto) 54.3 Lymph % (Auto) 33.8 [place] % (Auto) 8.4 Eos % (Auto) 2.6 Baso % (Auto) 0.9 Neut # (Auto) 5.2 Lymph # (Auto) 3.3 [place] # (Auto) 0.8 Eos # (Auto) 0.3 Baso # (Auto) 0.1 PT INR APTT Sodium Potassium Chloride Carbon Dioxide Anion Gap BUN Creatinine Est GFR ( Amer) Est GFR (Non-Af Amer) Random Glucose Hemoglobin A1c Calcium Total Bilirubin AST ALT Alkaline Phosphatase Troponin I < 0.0120 Total Protein Albumin Globulin Albumin/Globulin Ratio Triglycerides Cholesterol LDL Cholesterol Direct HDL Cholesterol Blood Type Antibody Screen - EKG Data EKG Interpreted by: Myself Assessment & Plan - Assessment and Plan (Free Text) Assessment: 58 y/o smoker, HTN with acute R. sided CVA and complete occlusion of MONTSE and moderate LICA disease EKG: NSR CXR: no congestion, clear lung berg Labs: Normal H/H; Normal creat ; Inc LDL 160 ; inc TRG 195 transient episode of CP atypical ~4:50 pm: ekg normal, f/u troponin negative x3 thus far. No suspicion for ACS or angina but given CAD Rf's and ASCVD cannot exclude: f/u echo for wall motion. LUE strength appears improved 4/5 probably suggestive of chronic MONTSE and poor collateral with ASVD Plan: ECHO with bubble study ordered along B/L LE DPV to r/o DVT Monitor for arrythmia permissive HTN per neurology High intensity statin therapy Consider vascepa 2gm BID Cont DAPT -> spoke with neuro; agree to load 300mg x1 then 75 daily DVT prophylaxis Will need cardio w/u as an outpatient after CVA rehab
[2018-06-22] MEDS: Sodium Chloride 0.9% 1,000 ML IV SCH ×4 (04:00→22:00)
[2018-06-22 07:01] LABS: LDL CHOLESTEROL 147 mg/dL (0-129)
[2018-06-22 07:08] LABS: BLOOD UREA NITROGEN 11 mg/dL (9-20)
[2018-06-22 07:11] LABS: ALBUMIN 3.9 g/dL (3.5-5.0); ALT/SGPT 38 U/L (21-72); AST/SGOT 24 U/L (17-59); CALCIUM 8.8 mg/dl (8.6-10.4); GFR NON-AFRICAN AMERICAN > 60; HDL CHOLESTEROL 38 mg/dL (30-70)
[2018-06-22 07:22] LABS: BASO # 0.1 K/uL (0.0-0.2); BASO % 0.6 % (0.0-2.0); EOS # 0.2 K/uL (0.0-0.7); EOS % 2.2 % (0.0-4.0); HEMOGLOBIN 14.7 g/dL (12.0-18.0); LYMPH # 2.5 K/uL (1.0-4.3); LYMPH % 30.7 % (20.0-40.0); MEAN CELL VOLUME 90.9 fL (80.0-94.0); MEAN CORPUSCULAR HEMOGLOBIN 32.4 pg (27.0-31.0); MEAN CORPUSCULAR HGB CONC 35.7 g/dL (33.0-37.0); MEAN PLATELET VOLUME 6.3 fL (7.2-11.7); MONO # 0.6 K/uL (0.0-0.8); MONO % 7.2 % (0.0-10.0); NEUT # 4.8 K/uL (1.8-7.0); NEUT % 59.3 % (50.0-75.0); NRBC % 0.1 % (0.0-2.0); RBC 4.54 Mil/uL (4.40-5.90); RED CELL DISTRIBUTION WIDTH 13.9 % (11.5-14.5); WHITE BLOOD COUNT 8.2 K/uL (4.8-10.8)
[2018-06-22 08:16] LABS: ALB/GLOB RATIO 1.5 (1.0-2.1)
[2018-06-22] MEDS: Pantoprazole 40 mg EC Tab PO SCH (09:58)
--- NOTE | 2018-06-22 10:36 | CP.PCM.PN ---
<Edel Quintana - Last Filed: 06/22/18 15:04> Subjective - Date & Time of Evaluation Date of Evaluation: 06/22/18 Time of Evaluation: 09:00 - Subjective Subjective: Neurology Follow Up Note Patient was seen and examined at bedside. Patient reports he has been having left lower extremity weakness for several months intermittently. He reports he had difficulty ambulating to the bathroom, and feels unsteady on his feet. ROS unremarkable, unless otherwise noted. Objective - Vital Signs/Intake and Output Vital Signs (last 24 hours): Temp Pulse Resp BP Pulse Ox 98.2 F 69 20 154/73 H 99 06/22/18 07:35 06/22/18 08:09 06/22/18 07:35 06/22/18 07:35 06/22/18 07:35 Intake and Output: 06/22/18 06/22/18 06:59 18:59 Intake Total 1300 Balance 1300 - Medications Medications: Current Medications Aspirin (Aspirin) 325 mg PO DAILY [facility] Last Admin: 06/22/18 09:58 Dose: 325 mg Clopidogrel Bisulfate (Plavix) 75 mg PO DAILY [facility] Last Admin: 06/22/18 09:58 Dose: 75 mg Heparin Sodium (Porcine) (Heparin) 5,000 units SC Q12 [facility] Last Admin: 06/22/18 09:58 Dose: 5,000 units Sodium Chloride (Sodium Chloride 0.9%) 1,000 mls @ 100 mls/hr IV .Q10H [facility] Last Admin: 06/22/18 04:00 Dose: 100 mls/hr Pantoprazole Sodium (Protonix Ec Tab) 40 mg PO DAILY [facility] Last Admin: 06/22/18 09:58 Dose: 40 mg Pneumococcal Polyvalent Vaccine (Pneumovax 23 Vaccine) 0.5 ml IM .ONCE ONE Stop: 06/23/18 10:01 Rosuvastatin Calcium (Crestor) 10 mg PO HS [facility] Last Admin: 06/21/18 21:29 Dose: 10 mg - Labs Labs: 06/22/18 06:26 06/22/18 06:26 PT 10.9 SECONDS (9.7-12.2) 06/20/18 20:08 INR 1.0 06/20/18 20:08 APTT 38 SECONDS (21-34) H 06/20/18 20:08 - Constitutional Appears: No Acute Distress - Head Exam Head Exam: NORMAL INSPECTION, NORMOCEPHALIC - Eye Exam Eye Exam: EOMI, Normal appearance, PERRL. absent: Nystagmus, Scleral icterus Pupil Exam: NORMAL ACCOMODATION, PERRL - ENT Exam ENT Exam: Mucous Membranes Dry - Respiratory Exam Respiratory Exam: Clear to Ausculation Bilateral - Cardiovascular Exam Cardiovascular Exam: +S1, +S2 - GI/Abdominal Exam GI & Abdominal Exam: Soft, Normal Bowel Sounds. absent: Distended, Tenderness - Neurological Exam Neurological Exam: Alert, Awake, CN II-XII Intact, Oriented x3 Neuro motor strength exam: Left Upper Extremity: 5, Right Upper Extremity: 5, Left Lower Extremity: 3, Right Lower Extremity: 5 - Psychiatric Exam Psychiatric exam: Normal Affect, Normal Mood - Skin Skin Exam: Dry, Intact, Normal Color, Warm Assessment and Plan - Assessment and Plan (Free Text) Plan: Complete Right ICA Occlusion, Right MCA Stroke Imaging: - Head CT: There are small chronic appearing infarcts seen in the deep white matter right cerebral hemisphere (right centrum semiovale). Smaller ischemic changes also seen in the right frontal subcortical region. Note that the possibility of a small hyperacute infarct cannot be excluded on this study. Clinical correlation recommended - Head/ Neck MRA: There is complete occlusion of the right internal carotid artery. Partially calcified plaque left carotid bifurcation-proximal left internal carotid artery which results in narrowing approximately 55-50%. - Brain MRI: 1. Multifocal small right MCA territory acute infarctions in the right frontal and parietal cortex, and right periatrial white matter. The pattern of distribution likely corresponds to anterior and posterior watershed territory infarctions. Occlusion of right intracranial internal carotid artery. 2. Old infarctions in right centrum semiovale. 3. Mild chronic microangiopathic changes and mild age-related global parenchymal volume loss. - ECHO with bubble study: read by Dr. Marrero - Positive atrial septal aneurysm with bubbles crossing the atrial septum suggesting a PFO versus small ASD. Pending repeat ECHO to obtain QP/Qs ratio to quantify PFO size. - In light of recent CVA, PFO, lower extremity dopplers ordered Management: - Smoking cessation - Continue ASA, Plavix, and high dose statin. - Continue with PT/ OT - Pending repeat ECHO Case discussed with Edel Sexton DO, PGY2 <Lopez Palomino - Last Filed: 06/23/18 17:56> Objective - Vital Signs/Intake and Output Vital Signs (last 24 hours): Temp Pulse Resp BP Pulse Ox 98.1 F 70 18 135/82 98 06/23/18 16:00 06/23/18 16:00 06/23/18 16:00 06/23/18 16:00 06/23/18 16:00 Intake and Output: 06/23/18 06/23/18 06:59 18:59 Intake Total 1000 Balance 1000 - Medications Medications: Current Medications Acetaminophen (Tylenol 325mg Tab) 650 mg PO Q6 PRN PRN Reason: Headache Last Admin: 06/23/18 16:54 Dose: 650 mg Aspirin (Aspirin Chewable) 81 mg PO DAILY [facility] Last Admin: 06/23/18 09:58 Dose: 81 mg Clopidogrel Bisulfate (Plavix) 75 mg PO DAILY [facility] Last Admin: 06/23/18 09:58 Dose: 75 mg Heparin Sodium (Porcine) (Heparin) 5,000 units SC Q12 [facility] Last Admin: 06/23/18 09:58 Dose: 5,000 units Pantoprazole Sodium (Protonix Ec Tab) 40 mg PO DAILY [facility] Last Admin: 06/23/18 09:58 Dose: 40 mg Rosuvastatin Calcium (Crestor) 10 mg PO HS [facility] Last Admin: 06/22/18 21:00 Dose: 10 mg - Labs Labs: 06/23/18 08:27 06/23/18 08:27 PT 10.9 SECONDS (9.7-12.2) 06/20/18 20:08 INR 1.0 06/20/18 20:08 APTT 38 SECONDS (21-34) H 06/20/18 20:08 Assessment and Plan (1) CVA (cerebral vascular accident) Status: Acute Attending/Attestation - Attestation I have personally seen and examined this patient.: Yes I have fully participated in the care of the patient.: Yes I have reviewed all pertinent clinical information, including history, physical exam and plan: Yes Notes (Text): 06/23/18 17:55 I agree with the assessment and plan. The source of the stroke is likely due to hypoperfusion in watershed zones as a result of complete occlusion of the MONTSE. - Smoking cessation - Continue ASA, Plavix, and high dose statin. - Continue with PT/ OT - Pending repeat ECHO
--- NOTE | 2018-06-22 11:44 | MRI ---
Date of service: 06/22/2018 PROCEDURE: MRI BRAIN WITHOUT CONTRAST HISTORY: ischemic stroke COMPARISON: Noncontrast head CT from 06/20/2018. TECHNIQUE: Multiplanar, multisequence MR images of the brain were obtained without intravenous contrast enhancement. FINDINGS: HEMORRHAGE: None DWI: There are small foci of restricted diffusion in the border zone right frontal and parietal cortex and right periatrial white matter in the MCA territory distribution. BRAIN PARENCHYMA: There are old infarctions in the right centrum semiovale. There are mild chronic microangiopathic changes. There is no mass, mass effect or abnormal extra-axial fluid collection. The midline sagittal structures are normal. VENTRICLES: There is mild age-related global parenchymal volume loss and proportionate enlargement of the ventricles and cortical sulci. CRANIUM: There is normal bone marrow signal pattern. There is mild hyperostosis frontalis interna. ORBITS: Grossly unremarkable. PARANASAL SINUSES/MASTOIDS: Predominantly clear. VASCULAR SYSTEM: There is absent signal voids in the right intracranial carotid artery. There are normal signal voids in the anterior cerebral, middle cerebral, left internal carotid, vertebral and basilar arteries. OTHER FINDINGS: None. IMPRESSION: 1. Multifocal small right MCA territory acute infarctions in the right frontal and parietal cortex, and right periatrial white matter. The pattern of distribution likely corresponds to anterior and posterior watershed territory infarctions. Occlusion of right intracranial internal carotid artery. 2. Old infarctions in right centrum semiovale. 3. Mild chronic microangiopathic changes and mild age-related global parenchymal volume loss. Important findings were discussed with Dr. Dani Palomino on 06/22/2018 at 11:30 a.m.
--- NOTE | 2018-06-22 12:15 | CP.PCM.PN ---
Subjective - Date & Time of Evaluation Date of Evaluation: 06/22/18 Time of Evaluation: 12:12 - Subjective Subjective: No new compliants LUE power 4/5 improved No edema no CP MRI results again confirm R. MCA territory CVA Objective - Vital Signs/Intake and Output Vital Signs (last 24 hours): Temp Pulse Resp BP Pulse Ox 98.2 F 69 20 154/73 H 99 06/22/18 07:35 06/22/18 08:09 06/22/18 07:35 06/22/18 07:35 06/22/18 07:35 Intake and Output: 06/22/18 06/22/18 06:59 18:59 Intake Total 1300 Balance 1300 - Medications Medications: Current Medications Aspirin (Aspirin Chewable) 81 mg PO DAILY [facility] Clopidogrel Bisulfate (Plavix) 75 mg PO DAILY [facility] Last Admin: 06/22/18 09:58 Dose: 75 mg Heparin Sodium (Porcine) (Heparin) 5,000 units SC Q12 [facility] Last Admin: 06/22/18 09:58 Dose: 5,000 units Sodium Chloride (Sodium Chloride 0.9%) 1,000 mls @ 100 mls/hr IV .Q10H [facility] Last Admin: 06/22/18 04:00 Dose: 100 mls/hr Pantoprazole Sodium (Protonix Ec Tab) 40 mg PO DAILY [facility] Last Admin: 06/22/18 09:58 Dose: 40 mg Pneumococcal Polyvalent Vaccine (Pneumovax 23 Vaccine) 0.5 ml IM .ONCE ONE Stop: 06/23/18 10:01 Rosuvastatin Calcium (Crestor) 10 mg PO HS [facility] Last Admin: 06/21/18 21:29 Dose: 10 mg - Labs Labs: 06/22/18 06:26 06/22/18 06:26 PT 10.9 SECONDS (9.7-12.2) 06/20/18 20:08 INR 1.0 06/20/18 20:08 APTT 38 SECONDS (21-34) H 06/20/18 20:08 - Constitutional Appears: No Acute Distress - Head Exam Head Exam: ATRAUMATIC, NORMAL INSPECTION, NORMOCEPHALIC - Eye Exam Eye Exam: EOMI, Normal appearance. absent: Scleral icterus - ENT Exam ENT Exam: Mucous Membranes Moist, Normal Oropharynx - Neck Exam Neck Exam: Full ROM, Normal Inspection. absent: Tenderness, Thyromegaly - Respiratory Exam Respiratory Exam: Clear to Ausculation Bilateral. absent: Rhonchi, Wheezes - Cardiovascular Exam Cardiovascular Exam: REGULAR RHYTHM, +S1, +S2. absent: +S4, Murmur - GI/Abdominal Exam GI & Abdominal Exam: Soft, Normal Bowel Sounds. absent: Tenderness, Organomegaly - Extremities Exam Extremities Exam: Normal Inspection. absent: Calf Tenderness, Pedal Edema - Neurological Exam Neurological Exam: Alert, Awake, Oriented x3 Neuro motor strength exam: Left Upper Extremity: 4, Right Upper Extremity: 5, Left Lower Extremity: 5, Right Lower Extremity: 5 - Psychiatric Exam Psychiatric exam: Normal Affect, Normal Mood - Skin Skin Exam: Normal Color, Warm Assessment and Plan - Assessment and Plan (Free Text) Assessment: 58 y/o smoker, HTN with acute R. sided CVA and complete occlusion of MONTSE and moderate LICA disease EKG: NSR CXR: no congestion, clear lung berg Labs: Normal H/H; Normal creat ; Inc LDL 160 ; inc TRG 195 transient episode of CP atypical ~4:50 pm: ekg normal, f/u troponin negative x3 thus far. No suspicion for ACS or angina but given CAD Rf's and ASCVD cannot exclude: f/u echo for wall motion. LUE strength appears improved 4/5 probably suggestive of chronic MONTSE and poor collateral with ASVD Plan: ECHO with bubble study ordered Normal LVEF and wall motion, no sig valvular pathology, normal RV size/function, normal PASP Positive atrial septal aneurysm with bubbles crossing the atrial septum suggesting a PFO versus small ASD ---> I have asked echo lab to repeat echo to obtain QP/Qs ratio to quantify PFO size LE DPV ordered to r/o any DVT Monitor for arrythmia permissive HTN per neurology High intensity statin therapy Consider vascepa 2gm BID Cont DAPT -> spoke with neuro; agree to load 300mg x1 then 75 daily DVT prophylaxis Will need cardio w/u as an outpatient after CVA rehab
--- NOTE | 2018-06-22 13:46 | CARD ---
APPROVED REPORT Date of service: 06/20/2018 EKG Measurement Heart [id number] <Conclusion> Sinus rhythm with 1st degree AV block Otherwise normal ECG
--- NOTE | 2018-06-22 17:55 | CP.PCM.PN ---
Subjective - Date & Time of Evaluation Date of Evaluation: 06/22/18 Time of Evaluation: 10:15 - Subjective Subjective: clinically same Objective - Vital Signs/Intake and Output Vital Signs (last 24 hours): Temp Pulse Resp BP Pulse Ox 98.3 F 65 20 138/89 95 06/22/18 16:00 06/22/18 16:00 06/22/18 16:00 06/22/18 16:00 06/22/18 16:00 Intake and Output: 06/22/18 06/22/18 06:59 18:59 Intake Total 1300 1600 Balance 1300 1600 - Medications Medications: Current Medications Aspirin (Aspirin Chewable) 81 mg PO DAILY [facility] Clopidogrel Bisulfate (Plavix) 75 mg PO DAILY [facility] Last Admin: 06/22/18 09:58 Dose: 75 mg Heparin Sodium (Porcine) (Heparin) 5,000 units SC Q12 [facility] Last Admin: 06/22/18 09:58 Dose: 5,000 units Sodium Chloride (Sodium Chloride 0.9%) 1,000 mls @ 100 mls/hr IV .Q10H [facility] Last Admin: 06/22/18 16:18 Dose: 100 mls/hr Pantoprazole Sodium (Protonix Ec Tab) 40 mg PO DAILY [facility] Last Admin: 06/22/18 09:58 Dose: 40 mg Pneumococcal Polyvalent Vaccine (Pneumovax 23 Vaccine) 0.5 ml IM .ONCE ONE Stop: 06/23/18 10:01 Rosuvastatin Calcium (Crestor) 10 mg PO HS [facility] Last Admin: 06/21/18 21:29 Dose: 10 mg - Labs Labs: 06/22/18 06:26 06/22/18 06:26 PT 10.9 SECONDS (9.7-12.2) 06/20/18 20:08 INR 1.0 06/20/18 20:08 APTT 38 SECONDS (21-34) H 06/20/18 20:08 - Constitutional Appears: Well - Head Exam Head Exam: ATRAUMATIC, NORMAL INSPECTION, NORMOCEPHALIC - Eye Exam Eye Exam: EOMI, Normal appearance, PERRL Pupil Exam: NORMAL ACCOMODATION, PERRL - ENT Exam ENT Exam: Mucous Membranes Moist, Normal Exam - Neck Exam Neck Exam: Full ROM, Normal Inspection. absent: Lymphadenopathy - Respiratory Exam Respiratory Exam: Decreased Breath Sounds - Cardiovascular Exam Cardiovascular Exam: REGULAR RHYTHM, +S1, +S2 - GI/Abdominal Exam GI & Abdominal Exam: Soft, Diminished Bowel Sounds - Rectal Exam Rectal Exam: Deferred Assessment and Plan - Assessment and Plan (Free Text) Plan: Continue aspirin Continue Crestor Heparin subcu Follow-up with cardio/neuro work up of cardio and neuro MRI results suggested a right MCA territory infarct Neurology Cardiology Echo bubble study ordered Follow-up with the cardiology also
[2018-06-23] MEDS: Sodium Chloride 0.9% 1,000 ML IV SCH (08:00)
[2018-06-23 08:41] LABS: BASO # 0.1 K/uL (0.0-0.2); BASO % 0.6 % (0.0-2.0); EOS # 0.2 K/uL (0.0-0.7); EOS % 1.5 % (0.0-4.0); LYMPH # 2.3 K/uL (1.0-4.3); MEAN CELL VOLUME 90.2 fL (80.0-94.0); MEAN CORPUSCULAR HEMOGLOBIN 32.2 pg (27.0-31.0); MEAN CORPUSCULAR HGB CONC 35.7 g/dL (33.0-37.0); MEAN PLATELET VOLUME 6.2 fL (7.2-11.7); MONO # 0.6 K/uL (0.0-0.8); MONO % 6.2 % (0.0-10.0); NEUT # 7.1 K/uL (1.8-7.0); NEUT % 69.7 % (50.0-75.0); RBC 4.35 Mil/uL (4.40-5.90); RED CELL DISTRIBUTION WIDTH 13.7 % (11.5-14.5); WHITE BLOOD COUNT 10.2 K/uL (4.8-10.8)
[2018-06-23 09:33] LABS: ALB/GLOB RATIO 1.3 (1.0-2.1); ALBUMIN 3.5 g/dL (3.5-5.0); ALT/SGPT 41 U/L (21-72); AST/SGOT 36 U/L (17-59); BLOOD UREA NITROGEN 10 mg/dL (9-20); CALCIUM 8.6 mg/dl (8.6-10.4); GFR NON-AFRICAN AMERICAN > 60
[2018-06-23] MEDS: Pantoprazole 40 mg EC Tab PO SCH (09:58)
[2018-06-23] MEDS ORDERED: Pneumococcal 23-Valent Vaccine IM ONE (10:00)
--- NOTE | 2018-06-23 10:58 | CP.PCM.PN ---
Subjective - Date & Time of Evaluation Date of Evaluation: 06/23/18 Time of Evaluation: 10:56 - Subjective Subjective: No new complaints patient remains stable is upper extremity strength has improved theres no chest pain or signs of heart failure Objective - Vital Signs/Intake and Output Vital Signs (last 24 hours): Temp Pulse Resp BP Pulse Ox 98.1 F 64 20 143/81 95 06/23/18 08:17 06/23/18 09:12 06/23/18 08:17 06/23/18 09:12 06/23/18 08:17 Intake and Output: 06/23/18 06/23/18 06:59 18:59 Intake Total 1000 Balance 1000 - Medications Medications: Current Medications Acetaminophen (Tylenol 325mg Tab) 650 mg PO Q6 PRN PRN Reason: Headache Last Admin: 06/23/18 10:41 Dose: 650 mg Aspirin (Aspirin Chewable) 81 mg PO DAILY [facility] Last Admin: 06/23/18 09:58 Dose: 81 mg Clopidogrel Bisulfate (Plavix) 75 mg PO DAILY [facility] Last Admin: 06/23/18 09:58 Dose: 75 mg Heparin Sodium (Porcine) (Heparin) 5,000 units SC Q12 [facility] Last Admin: 06/23/18 09:58 Dose: 5,000 units Sodium Chloride (Sodium Chloride 0.9%) 1,000 mls @ 100 mls/hr IV .Q10H [facility] Last Admin: 06/23/18 08:00 Dose: Not Given Pantoprazole Sodium (Protonix Ec Tab) 40 mg PO DAILY [facility] Last Admin: 06/23/18 09:58 Dose: 40 mg Rosuvastatin Calcium (Crestor) 10 mg PO HS [facility] Last Admin: 06/22/18 21:00 Dose: 10 mg - Labs Labs: 06/23/18 08:27 06/23/18 08:27 PT 10.9 SECONDS (9.7-12.2) 06/20/18 20:08 INR 1.0 06/20/18 20:08 APTT 38 SECONDS (21-34) H 06/20/18 20:08 - Head Exam Head Exam: ATRAUMATIC, NORMAL INSPECTION, NORMOCEPHALIC - Eye Exam Eye Exam: EOMI, Normal appearance - ENT Exam ENT Exam: Mucous Membranes Moist, Normal Exam - Neck Exam Neck Exam: Full ROM, Normal Inspection - Respiratory Exam Respiratory Exam: Clear to Ausculation Bilateral, NORMAL BREATHING PATTERN - Cardiovascular Exam Cardiovascular Exam: REGULAR RHYTHM, +S1, +S2 - GI/Abdominal Exam GI & Abdominal Exam: Soft, Normal Bowel Sounds - Extremities Exam Extremities Exam: Full ROM, Normal Capillary Refill, Normal Inspection - Neurological Exam Neurological Exam: Alert, Awake, Oriented x3 - Skin Skin Exam: Intact, Normal Color, Warm Assessment and Plan - Assessment and Plan (Free Text) Assessment: 58 y/o smoker, HTN with acute R. sided CVA and complete occlusion of MONTSE and moderate LICA disease EKG: NSR CXR: no congestion, clear lung berg Labs: Normal H/H; Normal creat ; Inc LDL 160 ; inc TRG 195 transient episode of CP atypical ~4:50 pm: ekg normal, f/u troponin negative x3 thus far. No suspicion for ACS or angina but given CAD Rf's and ASCVD cannot exclude: f/u echo for wall motion. LUE strength appears improved 4/5 probably suggestive of chronic MONTSE and poor collateral with ASVD Plan: ECHO with bubble study ordered Normal LVEF and wall motion, no sig valvular pathology, normal RV siz e/function, normal PASP Positive atrial septal aneurysm with bubbles crossing the atrial septum rangel ggesting a PFO versus small ASD ---> I have asked echo lab to repeat echo to obtain QP/Qs ratio to quantify PFO size: results is 1.3: 1 suggesting a small PFO LE DPV ordered to r/o any DVT: preliminary as read by me negative Monitor for arrythmia permissive HTN per neurology High intensity statin therapy Consider vascepa 2gm BID Cont DAPT -> spoke with neuro; agree to load 300mg x1 then 75 daily DVT prophylaxis Based on the presense of likely atherosclerotic cerebrovascular disease as cause of CVA and absence of any RV volume overload or PULM HTN: small pfo should be treated with dual antiplatelets at this time. --> CVA rehab --> outpatient f/u with us.
--- NOTE | 2018-06-23 16:10 | CP.PCM.PN ---
Subjective - Date & Time of Evaluation Date of Evaluation: 06/23/18 Time of Evaluation: 09:45 - Subjective Subjective: clinically same Objective - Vital Signs/Intake and Output Vital Signs (last 24 hours): Temp Pulse Resp BP Pulse Ox 98.1 F 64 20 143/81 95 06/23/18 08:17 06/23/18 09:12 06/23/18 08:17 06/23/18 09:12 06/23/18 08:17 Intake and Output: 06/23/18 06/23/18 06:59 18:59 Intake Total 1000 Balance 1000 - Medications Medications: Current Medications Acetaminophen (Tylenol 325mg Tab) 650 mg PO Q6 PRN PRN Reason: Headache Last Admin: 06/23/18 10:41 Dose: 650 mg Aspirin (Aspirin Chewable) 81 mg PO DAILY [facility] Last Admin: 06/23/18 09:58 Dose: 81 mg Clopidogrel Bisulfate (Plavix) 75 mg PO DAILY [facility] Last Admin: 06/23/18 09:58 Dose: 75 mg Heparin Sodium (Porcine) (Heparin) 5,000 units SC Q12 [facility] Last Admin: 06/23/18 09:58 Dose: 5,000 units Pantoprazole Sodium (Protonix Ec Tab) 40 mg PO DAILY [facility] Last Admin: 06/23/18 09:58 Dose: 40 mg Rosuvastatin Calcium (Crestor) 10 mg PO HS [facility] Last Admin: 06/22/18 21:00 Dose: 10 mg - Labs Labs: 06/23/18 08:27 06/23/18 08:27 PT 10.9 SECONDS (9.7-12.2) 06/20/18 20:08 INR 1.0 06/20/18 20:08 APTT 38 SECONDS (21-34) H 06/20/18 20:08 - Constitutional Appears: Well - Head Exam Head Exam: ATRAUMATIC, NORMAL INSPECTION, NORMOCEPHALIC - Eye Exam Eye Exam: EOMI, Normal appearance, PERRL Pupil Exam: NORMAL ACCOMODATION, PERRL - ENT Exam ENT Exam: Mucous Membranes Moist, Normal Exam - Neck Exam Neck Exam: Full ROM, Normal Inspection. absent: Lymphadenopathy - Respiratory Exam Respiratory Exam: Decreased Breath Sounds - Cardiovascular Exam Cardiovascular Exam: REGULAR RHYTHM, +S1, +S2 - GI/Abdominal Exam GI & Abdominal Exam: Soft, Diminished Bowel Sounds - Rectal Exam Rectal Exam: Deferred Assessment and Plan (1) Chest pain Status: Acute (2) Abdominal pain Status: Acute (3) Alcohol abuse Status: Acute (4) Chest discomfort Status: Acute (5) CVA (cerebral vascular accident) Status: Acute (6) Low back pain Status: Acute (7) Noncompliance with medications Status: Acute (8) Seizure disorder Status: Acute - Assessment and Plan (Free Text) Plan: Patient got PTOT Patient was seen by cardiology Patient was seen by neurology Continue aspirin and Plavix Echo revealed normal LVEF and wall motion PFO suggest that patient may have a PFO versus small ASD Continue Crestor Continue as all other medications
--- NOTE | 2018-06-23 17:03 | CP.PCM.CON ---
History of Present Illness - History of Present Illness History of Present Illness: Surgical consult note for Dr. Fragoso Patient is a 58 year old male with a PMHx of Bipolar disorder, depression, HTN, COPD, emphysema, PTSD, alcohol withdrawal seizures, who presented to the ED with left sided weakness and numbness. Patient was evaluated and diagnosed with ischemic CVA. Vascular surgery consulted to evaluate CTA showing 100% occlusion of the right internal carotid artery, and approx 50% occlusion of the left c arotid artery at the bifurcation. Patient reports return of motor function on left, with residual sensory deficit. Review of Systems - Constitutional Constitutional: Weakness (left sided) - Cardiovascular Cardiovascular: absent: Chest Pain - Respiratory Respiratory: absent: Dyspnea - Gastrointestinal Gastrointestinal: absent: Abdominal Pain - Musculoskeletal Musculoskeletal: Numbness (left sided) - Neurological Neurological: absent: Dizziness, Headaches Past Patient History - Past Medical History & Family History Past Medical History?: Yes - Past Social History Smoking Status: Heavy Smoker > 10 Cigarettes Daily - CARDIAC Hx Hypertension: Yes - PULMONARY Hx Asthma: Yes Hx Emphysema: Yes - NEUROLOGICAL Hx Seizures: Yes (alcoholic seziures) - HEENT Hx Blind: Yes (periods of blindness) - RENAL Hx Chronic Kidney Disease: Yes - ENDOCRINE/METABOLIC Hx Endocrine Disorders: Yes - HEMATOLOGICAL/ONCOLOGICAL Hx Cancer: No - INTEGUMENTARY Hx Dermatological Problems: No - MUSCULOSKELETAL/RHEUMATOLOGICAL Hx Falls: No - GASTROINTESTINAL Other/Comment: RECTAL BLEEDING - PSYCHIATRIC Hx Substance Use: Yes (cannobis) - SURGICAL HISTORY Hx Surgeries: Yes Hx Orthopedic Surgery: Yes (RIGHT 4TH FINGER) - ANESTHESIA Hx Anesthesia: Yes Meds Allergies/Adverse Reactions: Allergies Allergy/AdvReac Type Severity Reaction Status Date / Time No Known Allergies Allergy Verified 06/20/18 19:21 - Medications Medications: Current Medications Acetaminophen (Tylenol 325mg Tab) 650 mg PO Q6 PRN PRN Reason: Headache Last Admin: 06/23/18 16:54 Dose: 650 mg Aspirin (Aspirin Chewable) 81 mg PO DAILY [facility] Last Admin: 06/23/18 09:58 Dose: 81 mg Clopidogrel Bisulfate (Plavix) 75 mg PO DAILY [facility] Last Admin: 06/23/18 09:58 Dose: 75 mg Heparin Sodium (Porcine) (Heparin) 5,000 units SC Q12 [facility] Last Admin: 06/23/18 09:58 Dose: 5,000 units Pantoprazole Sodium (Protonix Ec Tab) 40 mg PO DAILY [facility] Last Admin: 06/23/18 09:58 Dose: 40 mg Rosuvastatin Calcium (Crestor) 10 mg PO HS [facility] Last Admin: 06/22/18 21:00 Dose: 10 mg Physical Exam - Constitutional Appears: Non-toxic, No Acute Distress - Head Exam Head Exam: ATRAUMATIC, NORMAL INSPECTION - Eye Exam Eye Exam: EOMI, Normal appearance - ENT Exam ENT Exam: Mucous Membranes Moist, Normal Exam - Respiratory Exam Respiratory Exam: Decreased Breath Sounds, NORMAL BREATHING PATTERN. absent: Respiratory Distress - Cardiovascular Exam Cardiovascular Exam: REGULAR RHYTHM. absent: Tachycardia - GI/Abdominal Exam GI & Abdominal Exam: Soft. absent: Distended - Extremities Exam Extremities exam: Positive for: normal inspection. Negative for: calf tenderness, pedal edema - Neurological Exam Neurological exam: Alert - Psychiatric Exam Psychiatric exam: Normal Affect, Normal Mood - Skin Skin Exam: Dry, Intact, Normal Color, Warm Results - Vital Signs Recent Vital Signs: Last Vital Signs Temp 98.1 F 06/23/18 08:17 Pulse 64 06/23/18 09:12 Resp 20 06/23/18 08:17 BP 143/81 06/23/18 09:12 Pulse Ox 95 06/23/18 08:17 - Labs Result Diagrams: 06/23/18 08:27 06/23/18 08:27 Labs: Laboratory Results - last 24 hr 06/23/18 06/23/18 08:27 08:27 WBC 10.2 RBC 4.35 L Hgb 14.0 Hct 39.2 MCV 90.2 MCH 32.2 H MCHC 35.7 RDW 13.7 Plt Count 314 MPV 6.2 L Neut % (Auto) 69.7 Lymph % (Auto) 22.0 Hettinger % (Auto) 6.2 Eos % (Auto) 1.5 Baso % (Auto) 0.6 Neut # (Auto) 7.1 H Lymph # (Auto) 2.3 Hettinger # (Auto) 0.6 Eos # (Auto) 0.2 Baso # (Auto) 0.1 Sodium 138 Potassium 3.8 Chloride 107 Carbon Dioxide 25 Anion Gap 10 BUN 10 Creatinine 0.7 L Est GFR ( Amer) > 60 Est GFR (Non-Af Amer) > 60 Random Glucose 104 Calcium 8.6 Total Bilirubin 0.6 AST 36 ALT 41 Alkaline Phosphatase 68 Total Protein 6.2 L Albumin 3.5 Globulin 2.7 Albumin/Globulin Ratio 1.3 Homocysteine 5.7 L Assessment & Plan - Assessment and Plan (Free Text) Assessment: 58 year old male s/p ischemic CVA; requesting consult for 100% MONTSE occlusion and 50% left carotid stenosis at the bifurcation Plan: -right carotid 100% occluded -no further surgical intervention -medical management per primary Discussed with Dr. Fouzia Villeda, PGY-1
[2018-06-24] MEDS: Pantoprazole 40 mg EC Tab PO SCH (10:28)
--- NOTE | 2018-06-24 14:56 | CP.PCM.PN ---
Subjective - Date & Time of Evaluation Date of Evaluation: 06/24/18 Time of Evaluation: 09:30 - Subjective Subjective: clinically same Objective - Vital Signs/Intake and Output Vital Signs (last 24 hours): Temp Pulse Resp BP Pulse Ox 98.1 F 59 L 20 129/76 96 06/24/18 08:17 06/24/18 08:17 06/24/18 08:17 06/24/18 08:17 06/24/18 08:17 Intake and Output: 06/24/18 06/24/18 06:59 18:59 Output Total 275 Balance -275 - Medications Medications: Current Medications Acetaminophen (Tylenol 325mg Tab) 650 mg PO Q6 PRN PRN Reason: Headache Last Admin: 06/23/18 16:54 Dose: 650 mg Aspirin (Aspirin Chewable) 81 mg PO DAILY [facility] Last Admin: 06/24/18 10:28 Dose: 81 mg Clopidogrel Bisulfate (Plavix) 75 mg PO DAILY [facility] Last Admin: 06/24/18 10:28 Dose: 75 mg Pantoprazole Sodium (Protonix Ec Tab) 40 mg PO DAILY [facility] Last Admin: 06/24/18 10:28 Dose: 40 mg Rosuvastatin Calcium (Crestor) 10 mg PO HS [facility] Last Admin: 06/23/18 21:19 Dose: 10 mg - Labs Labs: 06/23/18 08:27 06/23/18 08:27 PT 10.9 SECONDS (9.7-12.2) 06/20/18 20:08 INR 1.0 06/20/18 20:08 APTT 38 SECONDS (21-34) H 06/20/18 20:08 - Constitutional Appears: Well - Head Exam Head Exam: ATRAUMATIC, NORMAL INSPECTION, NORMOCEPHALIC - Eye Exam Eye Exam: EOMI, Normal appearance, PERRL Pupil Exam: NORMAL ACCOMODATION, PERRL - ENT Exam ENT Exam: Mucous Membranes Moist, Normal Exam - Neck Exam Neck Exam: Full ROM, Normal Inspection. absent: Lymphadenopathy - Respiratory Exam Respiratory Exam: Decreased Breath Sounds - Cardiovascular Exam Cardiovascular Exam: REGULAR RHYTHM, +S1, +S2 - GI/Abdominal Exam GI & Abdominal Exam: Soft, Diminished Bowel Sounds - Rectal Exam Rectal Exam: Deferred Assessment and Plan (1) Chest pain Status: Acute (2) Abdominal pain Status: Acute (3) Alcohol abuse Status: Acute (4) Chest discomfort Status: Acute (5) CVA (cerebral vascular accident) Status: Acute (6) Low back pain Status: Acute (7) Noncompliance with medications Status: Acute (8) Seizure disorder Status: Acute
--- NOTE | 2018-06-24 15:20 | CP.PCM.PN ---
<Casimiro Sanchez - Last Filed: 06/24/18 19:50> Subjective - Date & Time of Evaluation Date of Evaluation: 06/24/18 Time of Evaluation: 15:15 - Subjective Subjective: Progress note for Hospitalist service Care transferred to Hospitalist team from Dr. Emilie Orosco's team HPI: Patient is a 58 year old white male who states he initially came in after he experienced an episodes of inability to move his left arm and left leg after he woke up in his tent on Friday morning. He states that he is unsure how long this episode lasted, but he states that it lasted long enough that he was unable to get up to use the bathroom to urinate. He was incontinent of urine during this episode, but he states he was aware that he had to urinate. He states that this episode of weakness and paralysis resolved, after which he got up and went about his day. He experienced a second episode of left arm numbness later on the same day. He texted his friend who recommended that he seek medical attention. He states he is unsure if he experienced any facial droop or change in his speech since no one was around him when these episodes occurred. He states he has had intermittent episodes of weakness in his left arm and left leg when he drops things in his hand and his legs buckle out from underneath him. He states he has also had episode of blurry vision, where he is unable to read letters clearly. He also states that he has intermittent episodes of dizziness, headache and states that he has some memory issues as well. He denies fevers, chills, chest pain, shortness of breath, palpitations, abdominal pain, nausea, vomiting, diarrhea, constipation, urinary issues, dysuria, leg swelling. States he has intermittent leg pain and has had numbness in his feet for a long time, unable to quantify for how long. PMH: history of alcohol abuse, alcohol withdrawal seizures - no seizure since he stopped drinking alcohol 5 years ago, hypertension, Asthma, Bipolar Disorder, Depression, Emphysema, Post Traumatic Stress Disorder, PSH: Right hand surgery early Social hx: Homeless male, lives in a tent. Heavy alcohol abuse - stopped 5 years ago, Smoked 1ppd x50 yrs, Smokes marijuana daily. Family hx: Father of [place], Mother had stomach cancer Allergies: NKDA Home meds: Fish oil, B complex, Osteobiflex (friends give him these) Code status: Full code Advance directive: none Health care proxy: undetermined at this time. Objective - Vital Signs/Intake and Output Vital Signs (last 24 hours): Temp Pulse Resp BP Pulse Ox 98.1 F 59 L 20 129/76 96 06/24/18 08:17 06/24/18 08:17 06/24/18 08:17 06/24/18 08:17 06/24/18 08:17 Intake and Output: 06/24/18 06/24/18 06:59 18:59 Output Total 275 Balance -275 - Medications Medications: Current Medications Acetaminophen (Tylenol 325mg Tab) 650 mg PO Q6 PRN PRN Reason: Headache Last Admin: 06/23/18 16:54 Dose: 650 mg Aspirin (Aspirin Chewable) 81 mg PO DAILY [facility] Last Admin: 06/24/18 10:28 Dose: 81 mg Clopidogrel Bisulfate (Plavix) 75 mg PO DAILY [facility] Last Admin: 06/24/18 10:28 Dose: 75 mg Pantoprazole Sodium (Protonix Ec Tab) 40 mg PO DAILY [facility] Last Admin: 06/24/18 10:28 Dose: 40 mg Rosuvastatin Calcium (Crestor) 10 mg PO HS [facility] Last Admin: 06/23/18 21:19 Dose: 10 mg - Labs Labs: 06/23/18 08:27 06/23/18 08:27 PT 10.9 SECONDS (9.7-12.2) 06/20/18 20:08 INR 1.0 06/20/18 20:08 APTT 38 SECONDS (21-34) H 06/20/18 20:08 - Constitutional Appears: No Acute Distress - Head Exam Head Exam: ATRAUMATIC, NORMOCEPHALIC - Eye Exam Eye Exam: EOMI - ENT Exam ENT Exam: Mucous Membranes Moist - Neck Exam Neck Exam: Full ROM - Respiratory Exam Respiratory Exam: Wheezes (Mild wheezing on expiration). absent: Rales, Rh onchi, Respiratory Distress, Stridor - Cardiovascular Exam Cardiovascular Exam: REGULAR RHYTHM, +S1, +S2. absent: Murmur - GI/Abdominal Exam GI & Abdominal Exam: Soft, Normal Bowel Sounds. absent: Distended, Firm, Guardi ng, Rigid, Tenderness - Extremities Exam Extremities Exam: Normal Capillary Refill. 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 Positive Romberg sign, however might be due to left leg weakness Finger to nose test and heel to cowart test intact. Gait unsteady with left leg weakness - Skin Skin Exam: Dry, Intact, Warm Assessment and Plan - Assessment and Plan (Free Text) Plan: Assessment/plan 58 year old male with history of Asthma, Bipolar Disorder, Depression, Emphysema, HTN, Post Traumatic Stress Disorder, Seizures (alcoholic seziures) who presented for left sided weakness. Right MCA stroke Brain MRI 1. Multifocal small right MCA territory acute infarctions in the right frontal and parietal cortex, and right periatrial white matter. The pattern of distribution likely corresponds to anterior and posterior watershed territory infarctions. Occlusion of right intracranial internal carotid artery. 2. Old infarctions in right centrum semiovale. 3. Mild chronic microangiopathic changes and mild age-related global parenchymal volume loss. CT head No acute intracranial hemorrhage. There are small chronic appearing infarcts seen in the deep white matter right cerebral hemisphere (right centrum semiovale). Smaller ischemic changes also seen in the right frontal subcortical region. Note that the possibility of a small hyperacute infarct cannot be excluded on this study. Clinical correlation recommended Mild generalized volume loss ASA 81mg PO Plavix 300mg PO once, Plavix 75mg PO daily Neurology Dr. Palomino consulted, help appreciated Right ICA occlusion Moderate Left ICA stenosis CTA of head and neck There is complete occlusion of the right internal carotid artery. Partially calcified plaque left carotid bifurcation-proximal left internal carotid artery which results in narrowing approximately 52-50 5 percent.[id number] partially calcified atherosclerotic plaque left carotid siphon. The visualized intra the cerebral circulation is patent. No evidence of large aneurysm nor vascular malformation. 5 mm somewhat translucent appearing nodular opacity in the right lung apex nonspecific though could be postinflammatory. Follow-up nonemergent CT scan of the chest recommended for further evaluation. Centrilobular emphysematous changes seen in the upper lung berg. ASA 81mg PO Plavix 300mg PO once, Plavix 75mg PO daily Vascular Dr. Fragoso consulted, help appreciated No surgical intervention at this time, medical management PFO Cardiology Dr. Marrero consulted, help appreciated As per Dr. Marrero's note, ECHO with bubble study ordered Normal LVEF and wall motion, no sig valvular pathology, normal RV size/function, normal PASP Positive atrial septal aneurysm with bubbles crossing the atrial septum suggesting a PFO versus small ASD ---> echo lab to repeat echo to obtain QP/Qs ratio to quantify PFO size: results is 1.3: 1 suggesting a small PFO Venous dopplers ordered to r/o DVT Venous doppler Right: No evidence of deep or superficial vein thrombosis of the right lower extremity. Normal valve function noted of the right side. Left: No evidence of deep or superficial vein thrombosis of the left lower extremity. Normal valve function noted of the left side. Lipid panel: TG 148 Chol 210 LDL 147 HDL 38 Folate f/u Vit D f/u B12 f/u Homocysteine 5.7 Tropx2 negative EKG: NSR at 60 Continue to monitor for arrhythmia History of Hypertension Not elevated today Continue to monitor History of asthma/emphysema Duonebs Q4 PRN CXR No active disease History of bipolar disorder History of depression History of PTSD Patient currently no depressed or anxious, denies suicidal or homicidal thoughts Continue to monitor Prophylaxis: PT/OT GI PPX not indicated at this time DVT: Heparin discontinued by previous team Case discussed with Dr. Naomi Sanchez, PGY1 <Orlando Salgado H - Last Filed: 06/25/18 06:54> Objective - Vital Signs/Intake and Output Vital Signs (last 24 hours): Temp Pulse Resp BP Pulse Ox 97.9 F 60 20 112/65 98 06/24/18 23:21 06/24/18 23:21 06/24/18 23:21 06/24/18 23:21 06/24/18 23:21 Intake and Output: 06/24/18 06/25/18 18:59 06:59 Intake Total 400 Balance 400 - Medications Medications: Current Medications Acetaminophen (Tylenol 325mg Tab) 650 mg PO Q6 PRN PRN Reason: Headache Last Admin: 06/23/18 16:54 Dose: 650 mg Albuterol/Ipratropium (Duoneb 3 Mg/0.5 Mg (3 Ml) Ud) 3 ml INH RQ4 PRN PRN Reason: Wheezing Aspirin (Aspirin Chewable) 81 mg PO DAILY [facility] Last Admin: 06/24/18 10:28 Dose: 81 mg Clopidogrel Bisulfate (Plavix) 75 mg PO DAILY [facility] Last Admin: 06/24/18 10:28 Dose: 75 mg Pantoprazole Sodium (Protonix Ec Tab) 40 mg PO DAILY [facility] Last Admin: 06/24/18 10:28 Dose: 40 mg Rosuvastatin Calcium (Crestor) 10 mg PO HS [facility] Last Admin: 06/24/18 21:09 Dose: 10 mg - Labs Labs: 06/23/18 08:27 06/23/18 08:27 PT 10.9 SECONDS (9.7-12.2) 06/20/18 20:08 INR 1.0 06/20/18 20:08 APTT 38 SECONDS (21-34) H 06/20/18 20:08 Attending/Attestation - Attestation I have personally seen and examined this patient.: Yes I have fully participated in the care of the patient.: Yes I have reviewed all pertinent clinical information, including history, physical exam and plan: Yes Notes (Text): 06/25/18 06:51 Medical attending: Patient was seen and examined by me. They found out patient did not have medical insurance so the patient was t ransferred to hospitalist service. Per PT notes they have had been able to have him walk with a cane for 80 feet however afterwards has weakness. Reviewed the CT imaging showing the area of the CVA. He is now on dual antiplatelet medications. Ideally would benefit from going to an acute rehab center however given that he is homeless and without coverage this is much more difficult Orlando Salgado
--- NOTE | 2018-06-24 15:50 | VASCLAB ---
Date of service: 06/22/2018 PROCEDURE: Lower Extremity Venous Duplex Exam. HISTORY: Pain in limb, r/o DVT PRIORS: None. TECHNIQUE: Bilateral common femoral, femoral, popliteal and posterior tibial, peroneal and great saphenous veins were evaluated. Flow was assessed with color Doppler, compressibility, assessment of phasic flow and augmentation response. Report prepared by KENNY Varela FINDINGS: RIGHT: 1. Common Femoral Vein: 1.1. Compressibility - Fully compressible: Thrombus - None : Flow - Phasic: Augmentation -Normal: Reflux - None. 2. Femoral Vein: 2.1. Compressibility - Fully compressible: Thrombus - None : Flow - Phasic: Augmentation -Normal: Reflux - None. 3. Popliteal Vein: 3.1. Compressibility - Fully compressible: Thrombus - None : Flow - Phasic: Augmentation -Normal: Reflux - None. 4. Posterior Tibial Vein: 4.1. Compressibility - Fully compressible: Thrombus - None: Flow - Phasic: Augmentation -Normal: Reflux - None. 5. Peroneal Vein: 5.1. Compressibility - Fully compressible: Thrombus - None: Flow - Phasic: Augmentation -Normal: Reflux - None. 6. Great Saphenous Vein: 6.1. Compressibility - Fully compressible: Thrombus - None: Flow - Phasic: Augmentation - Normal: Reflux - None. LEFT: 1. Common Femoral Vein: 1.1. Compressibility - Fully compressible: Thrombus - None: Flow - Phasic: Augmentation -Normal: Reflux - None. 2. Femoral Vein: 2.1. Compressibility - Fully compressible: Thrombus - None: Flow - Phasic: Augmentation -Normal: Reflux - None. 3. Popliteal Vein: 3.1. Compressibility - Fully compressible: Thrombus - None : Flow - Phasic: Augmentation -Normal: Reflux - None. 4. Posterior Tibial Vein: 4.1. Compressibility - Fully compressible: Thrombus - None: Flow - Phasic: Augmentation -Normal: Reflux - None. 5. Peroneal Vein: 5.1. Compressibility - Fully compressible: Thrombus - None: Flow - Phasic: Augmentation -Normal: Reflux - None. 6. Great Saphenous Vein: 6.1. Compressibility - Fully compressible: Thrombus - None: Flow - Phasic: Augmentation - Normal: Reflux - None. OTHER FINDINGS: Right: None significant. Left: None significant. IMPRESSION: Right: No evidence of deep or superficial vein thrombosis of the right lower extremity. Normal valve function noted of the right side. Left: No evidence of deep or superficial vein thrombosis of the left lower extremity. Normal valve function noted of the left side.
--- NOTE | 2018-06-24 18:35 | CARD ---
APPROVED REPORT Date of service: 06/22/2018 EXAM: Three-dimensional, Two-dimensional and M-mode echocardiogram with Doppler and color Dopplerw/saline bubble. Other Information Quality : GoodRhythm : INDICATION CVA/TIA Echo Enhancing Agent Indication: Rule Out Septal Defect Agent/Amount Used: Agitated Saline 2D DIMENSIONS IVSd0.9 (0.7-1.1cm)LVDd4.7 (3.9-5.9cm) PWd0.8 (0.7-1.1cm)LA Ozjynz12 (18-58mL) LVDs2.9 (2.5-4.0cm)FS (%) 36.8 % LVEF (%)66.6 (>50%)LVEF (Santacruz's)60 % M-Mode DIMENSIONS Left Atrium (MM)3.72 (2.5-4.0cm)IVSd0.83 (0.7-1.1cm) Aortic Root3.28 (2.2-3.7cm)LVDd5.48 (4.0-5.6cm) Aortic Cusp Exc.2.02 (1.5-2.0cm)PWd0.89 (0.7-1.1cm) FS (%) 38 %LVDs3.39 (2.0-3.8cm) LVEF (%)68 (>50%) Mitral Valve MV E Cspkjgdj52.9cm/sMV A Sbsejktz19.6cm/sE/A ratio1.2 TDI Lateral E' Peak V8.93cm/sMedial E' Peak V6.74cm/sE/Lateral E'8.9 E/Medial E'11.9 Tricuspid Valve TR Peak Nuvyzxux945xm/sTR Peak Gr.[id number] LEFT VENTRICLE The left ventricle is normal size. There is normal left ventricular wall thickness. The left ventricular function is normal. The left ventricular ejection fraction is within the normal range. There is normal LV segmental wall motion. The left ventricular diastolic function is normal. RIGHT VENTRICLE The right ventricle is normal size. ATRIA The left atrium size is normal. The right atrium size is normal. There is an atrial septal defect. AORTIC VALVE The aortic valve is normal in structure. MITRAL VALVE The mitral valve is normal in structure. TRICUSPID VALVE There is trace to mild tricuspid regurgitation. <Conclusion> Normal LV systolic function. Normal chamber size. Trace to mild TR. There is an atrial septal defect.
[2018-06-24] MEDS ORDERED: Albuterol-Ipratrop 3 mg / 0.5 (3 ml) UD INH PRN (19:57)
[2018-06-24 22:53] LABS: FOLATE 14.2 ng/mL
[2018-06-25 08:12] LABS: BASO # 0.1 K/uL (0.0-0.2); BASO % 0.7 % (0.0-2.0); EOS # 0.2 K/uL (0.0-0.7); EOS % 2.2 % (0.0-4.0); HEMOGLOBIN 14.2 g/dL (12.0-18.0); LYMPH # 2.2 K/uL (1.0-4.3); LYMPH % 23.5 % (20.0-40.0); MEAN CELL VOLUME 91.7 fL (80.0-94.0); MEAN CORPUSCULAR HEMOGLOBIN 32.4 pg (27.0-31.0); MEAN CORPUSCULAR HGB CONC 35.3 g/dL (33.0-37.0); MEAN PLATELET VOLUME 6.2 fL (7.2-11.7); MONO # 0.8 K/uL (0.0-0.8); MONO % 8.4 % (0.0-10.0); NEUT # 6.1 K/uL (1.8-7.0); NEUT % 65.2 % (50.0-75.0); NRBC % 0.1 % (0.0-2.0); RBC 4.39 Mil/uL (4.40-5.90); RED CELL DISTRIBUTION WIDTH 13.7 % (11.5-14.5); WHITE BLOOD COUNT 9.4 K/uL (4.8-10.8)
[2018-06-25 08:47] LABS: ALB/GLOB RATIO 1.4 (1.0-2.1); ALBUMIN 3.7 g/dL (3.5-5.0); ALT/SGPT 162 U/L (21-72); AST/SGOT 120 U/L (17-59); BLOOD UREA NITROGEN 14 mg/dL (9-20); CALCIUM 8.9 mg/dl (8.6-10.4); GFR NON-AFRICAN AMERICAN > 60
[2018-06-25] MEDS: Pantoprazole 40 mg EC Tab PO SCH (09:19)
--- NOTE | 2018-06-25 10:01 | CP.PCM.PN ---
<Alpesh Begum - Last Filed: 06/25/18 15:07> Subjective - Date & Time of Evaluation Date of Evaluation: 06/25/18 Time of Evaluation: 07:00 - Subjective Subjective: Alpesh Begum PGY1 Progress Note for Dr. Salgado Pt was examined at bedside this morning. He reports R sided headache since waking up, rating it a 7/10. He reports associated sensitivity to light. He reports previous history of many headaches. He still reports decreased sensation in the L leg. Today he denies shortness of breath, chest pain, dizziness, abdominal pain, nausea, vomiting, diarrhea. Objective - Vital Signs/Intake and Output Vital Signs (last 24 hours): Temp Pulse Resp BP Pulse Ox 97.9 F 63 18 131/73 97 06/25/18 08:16 06/25/18 08:22 06/25/18 08:16 06/25/18 08:16 06/25/18 08:16 Intake and Output: 06/25/18 06/25/18 06:59 18:59 Intake Total 400 Balance 400 - Medications Medications: Current Medications Acetaminophen (Tylenol 325mg Tab) 650 mg PO Q6 PRN PRN Reason: Headache Last Admin: 06/25/18 08:29 Dose: 650 mg Albuterol/Ipratropium (Duoneb 3 Mg/0.5 Mg (3 Ml) Ud) 3 ml INH RQ4 PRN PRN Reason: Wheezing Aspirin (Aspirin Chewable) 81 mg PO DAILY [facility] Last Admin: 06/25/18 09:19 Dose: 81 mg Clopidogrel Bisulfate (Plavix) 75 mg PO DAILY [facility] Last Admin: 06/25/18 09:20 Dose: 75 mg Pantoprazole Sodium (Protonix Ec Tab) 40 mg PO DAILY [facility] Last Admin: 06/25/18 09:19 Dose: 40 mg Rosuvastatin Calcium (Crestor) 10 mg PO HS [facility] Last Admin: 06/24/18 21:09 Dose: 10 mg - Labs Labs: 06/25/18 07:57 06/25/18 07:57 PT 10.9 SECONDS (9.7-12.2) 06/20/18 20:08 INR 1.0 06/20/18 20:08 APTT 38 SECONDS (21-34) H 06/20/18 20:08 - Constitutional Appears: Well, No Acute Distress - Head Exam Head Exam: ATRAUMATIC, NORMOCEPHALIC - Eye Exam Eye Exam: EOMI, Normal appearance Pupil Exam: NORMAL ACCOMODATION - ENT Exam ENT Exam: Mucous Membranes Moist - Respiratory Exam Respiratory Exam: Clear to Ausculation Bilateral, NORMAL BREATHING PATTERN. absent: Decreased Breath Sounds, Rhonchi, Wheezes - Cardiovascular Exam Cardiovascular Exam: REGULAR RHYTHM, +S1, +S2. absent: Gallop, Rubs, Murmur - GI/Abdominal Exam GI & Abdominal Exam: Soft, Normal Bowel Sounds. absent: Distended, Tenderness - Extremities Exam Extremities Exam: Normal Inspection. absent: Pedal Edema - Neurological Exam Neurological Exam: Alert, Awake, Motor Sensory Deficit, Oriented x3 Neuro motor strength exam: Left Upper Extremity: 5, Right Upper Extremity: 5, Left Lower Extremity: 4, Right Lower Extremity: 4 Additional comments: decreased sensation to light touch in LLE Assessment and Plan - Assessment and Plan (Free Text) Assessment: 58 year old male with history of Asthma, Bipolar Disorder, Depression, Emphysema, HTN, Post Traumatic Stress Disorder, Seizures (alcoholic seziures) who presented for left sided weakness. Plan: Right MCA stroke - Brain MRI: small R MCA acute infarctions - anterior and posterior watershed territory infarctions. 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 Old infarctions in R centrum semiovale. Mild chronic microangiopathic changes and mild age-related global parenchymal volume loss. - CT head: No acute intracranial hemorrhage. small chronic appearing infarcts in deep white matter right cerebral hemisphere (right centrum semiovale). Smaller ischemic changes in R frontal subcortical region - ASA 81mg PO - Plavix 75mg PO daily - Neurology Dr. Palomino consulted, help appreciated Right ICA occlusion Moderate Left ICA stenosis - CTA of head and neck: complete occlusion of R ICA. Partially calcified plaque L carotid bifurcation-proximal L ICA 50-55%. [id number] partially calcified atherosclerotic plaque L carotid siphon. - Plavix 75mg PO daily - Vascular Dr. Fragoso consulted, help appreciated: No surgical intervention at this time, medical management PFO - Cardiology Dr. Marrero consulted, help appreciated - ECHO: nl LVEF and wall motion, no sig valvular pathology, normal RV size/function, normal PASP. Positive atrial septal aneurysm with bubbles crossing the atrial septum suggesting a PFO versus small ASD - QP/Qs ratio 1.3: 1 suggesting a small PFO - Venous dopplers: no DVT b/l - Lipid panel: TG 148 Chol 210 LDL 147 HDL 38 - nl folate, Vit B12, vit D - Tropx2 negative - EKG: NSR at 60 - Continue to monitor for arrhythmia History of HTN - continue to monitor History of asthma/emphysema - Duonebs Q4 PRN - CXR: No active disease History of bipolar disorder History of depression History of PTSD - Patient currently not depressed or anxious, denies suicidal or homicidal thoughts - Continue to monitor PPX: PT/OT: recommends acute rehab. pt unsteady gait. GI PPX not indicated at this time DVT: Heparin 5000 sc q8h Case discussed with Dr. Salgado <Orlando Salgado - Last Filed: 06/25/18 16:32> Objective - Vital Signs/Intake and Output Vital Signs (last 24 hours): Temp Pulse Resp BP Pulse Ox 98.2 F 65 20 133/75 95 06/25/18 15:35 06/25/18 15:35 06/25/18 15:35 06/25/18 15:35 06/25/18 15:35 Intake and Output: 06/25/18 06/25/18 06:59 18:59 Intake Total 400 800 Balance 400 800 - Medications Medications: Current Medications Acetaminophen (Tylenol 325mg Tab) 650 mg PO Q6 PRN PRN Reason: Headache Last Admin: 06/25/18 08:29 Dose: 650 mg Albuterol/Ipratropium (Duoneb 3 Mg/0.5 Mg (3 Ml) Ud) 3 ml INH RQ4 PRN PRN Reason: Wheezing Aspirin (Aspirin Chewable) 81 mg PO DAILY [facility] Last Admin: 06/25/18 09:19 Dose: 81 mg Clopidogrel Bisulfate (Plavix) 75 mg PO DAILY [facility] Last Admin: 06/25/18 09:20 Dose: 75 mg Heparin Sodium (Porcine) (Heparin) 5,000 units SC Q8 [facility] Pantoprazole Sodium (Protonix Ec Tab) 40 mg PO DAILY [facility] Last Admin: 06/25/18 09:19 Dose: 40 mg Rosuvastatin Calcium (Crestor) 10 mg PO HS [facility] Last Admin: 06/24/18 21:09 Dose: 10 mg - Labs Labs: 06/25/18 07:57 06/25/18 07:57 PT 10.9 SECONDS (9.7-12.2) 06/20/18 20:08 INR 1.0 06/20/18 20:08 APTT 38 SECONDS (21-34) H 06/20/18 20:08 Attending/Attestation - Attestation I have personally seen and examined this patient.: Yes I have fully participated in the care of the patient.: Yes I have reviewed all pertinent clinical information, including history, physical exam and plan: Yes Notes (Text): 06/25/18 16:29 Medical attending: Patient was seen and examined by me. Agree with the above note by the resident At bedside he was able to raise both arms without drifting and was able to lift both legs with minimal drifting present. He did PT but did not do well he say. As mentioned previously he is homeless and PT is recommending SITA or acute rehab however he does not have the information for this. He continues to be on the Plavix and ASA, statin. Orlando Salgado
[2018-06-25] MEDS ORDERED: Magnesium Sulfate 454 g Box PO ONE (15:15)
[2018-06-25] MEDS ORDERED: Magnesium Sulfate 1 gm in D5W 1 GM/100 ML BAG IVPB ONE (16:00)
--- NOTE | 2018-06-25 17:15 | CARD ---
APPROVED REPORT Date of service: 06/21/2018 EKG Measurement Heart [id number] <Conclusion> Sinus rhythm with 1st degree AV block Otherwise normal ECG
--- NOTE | 2018-06-25 18:59 | CP.PCM.PN ---
Subjective - Date & Time of Evaluation Date of Evaluation: 06/25/18 Time of Evaluation: 15:00 - Subjective Subjective: Mr. Shin was seen and examined today at bedside. He had no new complaints. There were no acute events overnight. Objective - Vital Signs/Intake and Output Vital Signs (last 24 hours): Temp Pulse Resp BP Pulse Ox 98.2 F 64 20 133/75 95 06/25/18 15:35 06/25/18 16:16 06/25/18 15:35 06/25/18 15:35 06/25/18 15:35 Intake and Output: 06/25/18 06/25/18 06:59 18:59 Intake Total 400 800 Balance 400 800 - Medications Medications: Current Medications Acetaminophen (Tylenol 325mg Tab) 650 mg PO Q6 PRN PRN Reason: Headache Last Admin: 06/25/18 08:29 Dose: 650 mg Albuterol/Ipratropium (Duoneb 3 Mg/0.5 Mg (3 Ml) Ud) 3 ml INH RQ4 PRN PRN Reason: Wheezing Aspirin (Aspirin Chewable) 81 mg PO DAILY [facility] Last Admin: 06/25/18 09:19 Dose: 81 mg Clopidogrel Bisulfate (Plavix) 75 mg PO DAILY [facility] Last Admin: 06/25/18 09:20 Dose: 75 mg Heparin Sodium (Porcine) (Heparin) 5,000 units SC Q8 [facility] Pantoprazole Sodium (Protonix Ec Tab) 40 mg PO DAILY [facility] Last Admin: 06/25/18 09:19 Dose: 40 mg Rosuvastatin Calcium (Crestor) 10 mg PO HS [facility] Last Admin: 06/24/18 21:09 Dose: 10 mg - Labs Labs: 06/25/18 07:57 06/25/18 07:57 PT 10.9 SECONDS (9.7-12.2) 06/20/18 20:08 INR 1.0 06/20/18 20:08 APTT 38 SECONDS (21-34) H 06/20/18 20:08 - Neurological Exam Neurological Exam: Abnormal Gait, Alert, Awake, CN II-XII Intact, Oriented x3 Neuro motor strength exam: Left Upper Extremity: 4, Right Upper Extremity: 5, Left Lower Extremity: 4, Right Lower Extremity: 5 Assessment and Plan (1) CVA (cerebral vascular accident) Assessment & Plan: Will continue dual antiplatelet therapy for secondary stroke prevention in addition to high dose statin. Follow-up with PT/OT. Status: Acute
[2018-06-26 09:05] LABS: BASO # 0.1 K/uL (0.0-0.2); BASO % 0.9 % (0.0-2.0); EOS # 0.2 K/uL (0.0-0.7); EOS % 2.7 % (0.0-4.0); HEMOGLOBIN 14.2 g/dL (12.0-18.0); LYMPH # 2.2 K/uL (1.0-4.3); LYMPH % 26.1 % (20.0-40.0); MEAN CELL VOLUME 91.1 fL (80.0-94.0); MEAN CORPUSCULAR HEMOGLOBIN 31.5 pg (27.0-31.0); MEAN CORPUSCULAR HGB CONC 34.6 g/dL (33.0-37.0); MEAN PLATELET VOLUME 6.3 fL (7.2-11.7); MONO # 0.7 K/uL (0.0-0.8); MONO % 8.1 % (0.0-10.0); NEUT # 5.2 K/uL (1.8-7.0); NEUT % 62.2 % (50.0-75.0); RBC 4.52 Mil/uL (4.40-5.90); RED CELL DISTRIBUTION WIDTH 13.8 % (11.5-14.5); WHITE BLOOD COUNT 8.4 K/uL (4.8-10.8)
[2018-06-26 09:27] LABS: ALBUMIN 3.9 g/dL (3.5-5.0); BLOOD UREA NITROGEN 15 mg/dL (9-20); CALCIUM 8.9 mg/dl (8.6-10.4); GFR NON-AFRICAN AMERICAN > 60
[2018-06-26 09:28] LABS: ALB/GLOB RATIO 1.4 (1.0-2.1); ALT/SGPT 212 U/L (21-72); AST/SGOT 134 U/L (17-59)
[2018-06-26] MEDS: Pantoprazole 40 mg EC Tab PO SCH (09:58)
--- NOTE | 2018-06-26 13:40 | CP.PCM.PN ---
<Alpesh Begum - Last Filed: 06/26/18 13:38> Subjective - Date & Time of Evaluation Date of Evaluation: 06/26/18 Time of Evaluation: 10:00 - Subjective Subjective: Alpesh Begum PGY1 Progress Note for Dr. Salgado Pt was examined at bedside this morning. He reports that his headache has resolved. He says he is able to walk around and take stairs without difficulty. He denies chest pain, shortness of breath, abdominal pain, nausea, vomiting, diarrhea, dizziness. Objective - Vital Signs/Intake and Output Vital Signs (last 24 hours): Temp Pulse Resp BP Pulse Ox 97.5 F L 63 18 166/91 H 94 L 06/26/18 08:14 06/26/18 08:14 06/26/18 08:14 06/26/18 08:14 06/26/18 08:14 Intake and Output: 06/26/18 06/26/18 06:59 18:59 Output Total 200 Balance -200 - Medications Medications: Current Medications Acetaminophen (Tylenol 325mg Tab) 650 mg PO Q6 PRN PRN Reason: Headache Last Admin: 06/25/18 08:29 Dose: 650 mg Albuterol/Ipratropium (Duoneb 3 Mg/0.5 Mg (3 Ml) Ud) 3 ml INH RQ4 PRN PRN Reason: Wheezing Aspirin (Aspirin Chewable) 81 mg PO DAILY [facility] Last Admin: 06/26/18 09:58 Dose: 81 mg Clopidogrel Bisulfate (Plavix) 75 mg PO DAILY [facility] Last Admin: 06/26/18 09:58 Dose: 75 mg Heparin Sodium (Porcine) (Heparin) 5,000 units SC Q8 [facility] Last Admin: 06/26/18 06:21 Dose: 5,000 units Nicotine (Nicoderm Cq) 1 patch TD DAILY [facility] Pantoprazole Sodium (Protonix Ec Tab) 40 mg PO DAILY [facility] Last Admin: 06/26/18 09:58 Dose: 40 mg Rosuvastatin Calcium (Crestor) 10 mg PO HS [facility] Last Admin: 06/25/18 21:27 Dose: 10 mg - Labs Labs: 06/26/18 08:56 06/26/18 08:56 PT 10.9 SECONDS (9.7-12.2) 06/20/18 20:08 INR 1.0 06/20/18 20:08 APTT 38 SECONDS (21-34) H 06/20/18 20:08 - Additional Findings Additional findings: - Constitutional Appears: Well, No Acute Distress - Head Exam Head Exam: ATRAUMATIC, NORMOCEPHALIC - Eye Exam Eye Exam: EOMI, Normal appearance Pupil Exam: NORMAL ACCOMODATION - ENT Exam ENT Exam: Mucous Membranes Moist - Respiratory Exam Respiratory Exam: Clear to Ausculation Bilateral, NORMAL BREATHING PATTERN. absent: Decreased Breath Sounds, Rhonchi, Wheezes - Cardiovascular Exam Cardiovascular Exam: REGULAR RHYTHM, +S1, +S2. absent: Gallop, Rubs, Murmur - GI/Abdominal Exam GI & Abdominal Exam: Soft, Normal Bowel Sounds. absent: Distended, Tenderness - Extremities Exam Extremities Exam: Normal Inspection. absent: Pedal Edema - Neurological Exam Neurological Exam: Alert, Awake, Motor Sensory Deficit, Oriented x3 Neuro motor strength exam: Left Upper Extremity: 5, Right Upper Extremity: 5, Left Lower Extremity: 4, Right Lower Extremity: 4 Additional comments: decreased sensation to light touch in LLE Gait: normal, steady gait Assessment and Plan - Assessment and Plan (Free Text) Assessment: 58 year old male with history of Asthma, Bipolar Disorder, Depression, Emphysema, HTN, Post Traumatic Stress Disorder, Seizures (alcoholic seziures) who presented for left sided weakness. Plan: Right MCA stroke - Brain MRI: small R MCA acute infarctions - anterior and posterior watershed territory infarctions. 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 Old infarctions in R centrum semiovale. Mild chronic microangiopathic changes and mild age-related global parenchymal volume loss. - CT head: No acute intracranial hemorrhage. small chronic appearing infarcts in deep white matter right cerebral hemisphere (right centrum semiovale). Smaller ischemic changes in R frontal subcortical region - ASA 81mg PO - Plavix 75mg PO daily - Neurology Dr. Palomino consulted, help appreciated Right ICA occlusion Moderate Left ICA stenosis - CTA of head and neck: complete occlusion of R ICA. Partially calcified plaque L carotid bifurcation-proximal L ICA 50-55%. [id number] partially calcified atherosclerotic plaque L carotid siphon. - Plavix 75mg PO daily - Vascular Dr. Fragoso consulted, help appreciated: No surgical intervention at this time, medical management PFO - Cardiology Dr. Marrero consulted, help appreciated - ECHO: nl LVEF and wall motion, no sig valvular pathology, normal RV size/function, normal PASP. Positive atrial septal aneurysm with bubbles crossing the atrial septum suggesting a PFO versus small ASD - QP/Qs ratio 1.3: 1 suggesting a small PFO - Venous dopplers: no DVT b/l - Tropx2 negative - EKG: NSR at 60 - Continue to monitor for arrhythmia History of HTN - continue to monitor History of asthma/emphysema - Duonebs Q4 PRN - CXR: No active disease History of bipolar disorder History of depression History of PTSD - Patient currently not depressed or anxious, denies suicidal or homicidal thoughts - Continue to monitor PPX: PT/OT: recommends acute rehab. GI PPX not indicated at this time DVT: Heparin 5000 sc q8h Case discussed with Dr. Salgado <Orlando Salgado - Last Filed: 06/26/18 14:16> Objective - Vital Signs/Intake and Output Vital Signs (last 24 hours): Temp Pulse Resp BP Pulse Ox 97.5 F L 63 18 166/91 H 94 L 06/26/18 08:14 06/26/18 08:14 06/26/18 08:14 06/26/18 08:14 06/26/18 08:14 Intake and Output: 06/26/18 06/26/18 06:59 18:59 Output Total 200 Balance -200 - Medications Medications: Current Medications Acetaminophen (Tylenol 325mg Tab) 650 mg PO Q6 PRN PRN Reason: Headache Last Admin: 06/25/18 08:29 Dose: 650 mg Albuterol/Ipratropium (Duoneb 3 Mg/0.5 Mg (3 Ml) Ud) 3 ml INH RQ4 PRN PRN Reason: Wheezing Aspirin (Aspirin Chewable) 81 mg PO DAILY [facility] Last Admin: 06/26/18 09:58 Dose: 81 mg Clopidogrel Bisulfate (Plavix) 75 mg PO DAILY [facility] Last Admin: 06/26/18 09:58 Dose: 75 mg Heparin Sodium (Porcine) (Heparin) 5,000 units SC Q8 [facility] Last Admin: 06/26/18 06:21 Dose: 5,000 units Nicotine (Nicoderm Cq) 1 patch TD DAILY [facility] Pantoprazole Sodium (Protonix Ec Tab) 40 mg PO DAILY [facility] Last Admin: 06/26/18 09:58 Dose: 40 mg Rosuvastatin Calcium (Crestor) 10 mg PO HS [facility] Last Admin: 06/25/18 21:27 Dose: 10 mg - Labs Labs: 06/26/18 08:56 06/26/18 08:56 PT 10.9 SECONDS (9.7-12.2) 06/20/18 20:08 INR 1.0 06/20/18 20:08 APTT 38 SECONDS (21-34) H 06/20/18 20:08 Attending/Attestation - Attestation I have personally seen and examined this patient.: Yes I have fully participated in the care of the patient.: Yes I have reviewed all pertinent clinical information, including history, physical exam and plan: Yes Notes (Text): 06/26/18 14:16 The patient was seen and examined by me, I reviewed the above note by medical doctor and agree with the above note The patient was not in any acute distress. Today on physical exam he is able to sit out of bed and stand up and walk into the hallway. He then walked back. His gait did appear weak. He had to lean against the wall. As previously mentioned he has been followed by physical therapy and rehabilitation and they are recommending SITA or acute rehabilitation. However due to the patient's social and financial situation he does not qualify to go to a rehabilitation center at this time. So we encouraged him to try to participate as much as possible when he has physical therapy here.
[2018-06-26 16:50] LABS: HEPATITIS B SURFACE AG Negative (NEGATIVE)
[2018-06-26 16:56] LABS: HEPATITIS A IGM NEGATIVE (NEGATIVE); HEPATITIS B CORE AB NEGATIVE (NEGATIVE)
[2018-06-26 17:13] VITALS: RESP 20
[2018-06-26 19:03] LABS: BARBITURATES, UR NEGATIVE (NEGATIVE); BENZODIAZEPINES, UR NEGATIVE (NEGATIVE); OPIATES, UR NEGATIVE (NEGATIVE); PHENCYCLIDINE, UR NEGATIVE (NEGATIVE)
[2018-06-26 20:03] LABS: HEPATITIS C ANTIBODY Negative (NEGATIVE)
--- NOTE | 2018-06-27 01:07 | CP.PCM.PN ---
<Louise Carlson - Last Filed: 06/27/18 01:10> Subjective - Date & Time of Evaluation Date of Evaluation: 06/27/18 Time of Evaluation: 01:04 - Subjective Subjective: Night Float Progress Note Patient seen and examined at bedside. Francisco brock got page earlier when patient having dinner. He was complaining of left hand numbness/tingling when eating dinner per RN. It has resolved by the time francisco brock visited. Patient denies any other issues. Denies chest pain, SOB, nausea, vomiting, diarrhea, cough. He is afraid that he is having another stroke because of what happened during dinner. Objective - Vital Signs/Intake and Output Vital Signs (last 24 hours): Temp Pulse Resp BP Pulse Ox 98.1 F 70 20 110/59 L 95 06/27/18 00:44 06/27/18 00:44 06/27/18 00:44 06/27/18 00:44 06/27/18 00:44 - Medications Medications: Current Medications Acetaminophen (Tylenol 325mg Tab) 650 mg PO Q6 PRN PRN Reason: Headache Last Admin: 06/25/18 08:29 Dose: 650 mg Albuterol/Ipratropium (Duoneb 3 Mg/0.5 Mg (3 Ml) Ud) 3 ml INH RQ4 PRN PRN Reason: Wheezing Aspirin (Aspirin Chewable) 81 mg PO DAILY [facility] Last Admin: 06/26/18 09:58 Dose: 81 mg Clopidogrel Bisulfate (Plavix) 75 mg PO DAILY [facility] Last Admin: 06/26/18 09:58 Dose: 75 mg Heparin Sodium (Porcine) (Heparin) 5,000 units SC Q8 [facility] Last Admin: 06/26/18 21:41 Dose: 5,000 units Nicotine (Nicoderm Cq) 1 patch TD DAILY [facility] Last Admin: 06/26/18 15:40 Dose: 1 patch Pantoprazole Sodium (Protonix Ec Tab) 40 mg PO DAILY [facility] Last Admin: 06/26/18 09:58 Dose: 40 mg Rosuvastatin Calcium (Crestor) 10 mg PO HS [facility] Last Admin: 06/26/18 21:41 Dose: 10 mg - Labs Labs: 06/26/18 08:56 06/26/18 08:56 PT 10.9 SECONDS (9.7-12.2) 06/20/18 20:08 INR 1.0 06/20/18 20:08 APTT 38 SECONDS (21-34) H 06/20/18 20:08 - Constitutional Appears: Well, Non-toxic - Head Exam Head Exam: ATRAUMATIC, NORMAL INSPECTION - Eye Exam Eye Exam: EOMI, Normal appearance - Neck Exam Neck Exam: Normal Inspection - Respiratory Exam Respiratory Exam: Clear to Ausculation Bilateral, NORMAL BREATHING PATTERN - Cardiovascular Exam Cardiovascular Exam: REGULAR RHYTHM - GI/Abdominal Exam GI & Abdominal Exam: Soft, Normal Bowel Sounds. absent: Distended, Firm, Gu arding, Rigid, Tenderness - Extremities Exam Extremities Exam: Normal Inspection - Neurological Exam Neurological Exam: Alert, Awake, Oriented x3 Neuro motor strength exam: Left Upper Extremity: 5, Right Upper Extremity: 5 Additional comments: Positive tinel's sign left wrist. Negative phalen's and reverse phalen's tests. - Psychiatric Exam Psychiatric exam: Normal Affect, Normal Mood - Skin Skin Exam: Dry, Intact, Normal Color, Warm Assessment and Plan - Assessment and Plan (Free Text) Assessment: 58 year old male with history of Asthma, Bipolar Disorder, Depression, Emphysema, HTN, Post Traumatic Stress Disorder, Seizures (alcoholic seziures) who presented for left sided weakness. Right MCA stroke - Brain MRI: small R MCA acute infarctions - anterior and posterior watershed territory infarctions. 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 Old infarctions in R centrum semiovale. Mild chronic microangiopathic changes and mild age-related global parenchymal volume loss. - CT head: No acute intracranial hemorrhage. small chronic appearing infarcts in deep white matter right cerebral hemisphere (right centrum semiovale). Smaller ischemic changes in R frontal subcortical region - ASA 81mg PO - Plavix 75mg PO daily - Neurology Dr. Palomino consulted, help appreciated Right ICA occlusion Moderate Left ICA stenosis - CTA of head and neck: complete occlusion of R ICA. Partially calcified plaque L carotid bifurcation-proximal L ICA 50-55%. [id number] partially calcified atherosclerotic plaque L carotid siphon. - Plavix 75mg PO daily - Vascular Dr. Fragoso consulted, help appreciated: No surgical intervention at this time, medical management PFO - Cardiology Dr. Marrero consulted, help appreciated - ECHO: nl LVEF and wall motion, no sig valvular pathology, normal RV size/function, normal PASP. Positive atrial septal aneurysm with bubbles crossing the atrial septum suggesting a PFO versus small ASD - QP/Qs ratio 1.3: 1 suggesting a small PFO - Venous dopplers: no DVT b/l - Tropx2 negative - EKG: NSR at 60 - Continue to monitor for arrhythmia History of HTN - continue to monitor History of asthma/emphysema - Duonebs Q4 PRN - CXR: No active disease History of bipolar disorder History of depression History of PTSD - Patient currently not depressed or anxious, denies suicidal or homicidal thoughts - Continue to monitor PPX: PT/OT: recommends acute rehab. GI PPX not indicated at this time DVT: Heparin 5000 sc q8h <Orlando Salgado H - Last Filed: 06/27/18 11:58> Objective - Vital Signs/Intake and Output Vital Signs (last 24 hours): Temp Pulse Resp BP Pulse Ox 97.6 F 65 20 126/81 94 L 06/27/18 07:54 06/27/18 07:54 06/27/18 07:54 06/27/18 07:54 06/27/18 07:54 - Medications Medications: Current Medications Acetaminophen (Tylenol 325mg Tab) 650 mg PO Q6 PRN PRN Reason: Headache Last Admin: 06/25/18 08:29 Dose: 650 mg Albuterol/Ipratropium (Duoneb 3 Mg/0.5 Mg (3 Ml) Ud) 3 ml INH RQ4 PRN PRN Reason: Wheezing Aspirin (Aspirin Chewable) 81 mg PO DAILY [facility] Last Admin: 06/27/18 09:26 Dose: 81 mg Clopidogrel Bisulfate (Plavix) 75 mg PO DAILY [facility] Last Admin: 06/27/18 09:26 Dose: 75 mg Heparin Sodium (Porcine) (Heparin) 5,000 units SC Q8 [facility] Last Admin: 06/27/18 05:58 Dose: 5,000 units Nicotine (Nicoderm Cq) 1 patch TD DAILY [facility] Last Admin: 06/27/18 09:26 Dose: 1 patch Pantoprazole Sodium (Protonix Ec Tab) 40 mg PO DAILY [facility] Last Admin: 06/27/18 09:26 Dose: 40 mg Rosuvastatin Calcium (Crestor) 10 mg PO HS [facility] Last Admin: 06/26/18 21:41 Dose: 10 mg - Labs Labs: 06/27/18 07:11 06/27/18 07:11 PT 10.9 SECONDS (9.7-12.2) 06/20/18 20:08 INR 1.0 06/20/18 20:08 APTT 38 SECONDS (21-34) H 06/20/18 20:08 Attending/Attestation - Attestation I have personally seen and examined this patient.: Yes I have fully participated in the care of the patient.: Yes I have reviewed all pertinent clinical information, including history, physical exam and plan: Yes Notes (Text): 06/27/18 11:54 Medical attending: Patient was seen and examined by me. Agree with the above note by the resident The patient was not in any acute distress when I came and saw. The patient was observed walking in the room and into the hallway. Earlier he worked with PT and with a cane was able to move for some distances As mentioned previously he does not want to go to a snf and we had a long discussion about this. He wants to see if his friends will take him in but he is not sure Orlando Salgado
--- NOTE | 2018-06-27 01:13 | CP.PCM.PCO ---
Physician Communication Note - Physician Communication Note Physician Communication Note: see above
[2018-06-27 07:26] LABS: BASO # 0.1 K/uL (0.0-0.2); BASO % 0.9 % (0.0-2.0); EOS # 0.2 K/uL (0.0-0.7); EOS % 2.5 % (0.0-4.0); HEMOGLOBIN 14.1 g/dL (12.0-18.0); LYMPH # 2.2 K/uL (1.0-4.3); LYMPH % 27.5 % (20.0-40.0); MEAN CORPUSCULAR HEMOGLOBIN 32.2 pg (27.0-31.0); MEAN CORPUSCULAR HGB CONC 35.4 g/dL (33.0-37.0); MEAN PLATELET VOLUME 6.4 fL (7.2-11.7); MONO # 0.6 K/uL (0.0-0.8); MONO % 7.9 % (0.0-10.0); NEUT % 61.2 % (50.0-75.0); NRBC % 0.1 % (0.0-2.0); RBC 4.37 Mil/uL (4.40-5.90); RED CELL DISTRIBUTION WIDTH 14.2 % (11.5-14.5); WHITE BLOOD COUNT 8.2 K/uL (4.8-10.8)
[2018-06-27 07:58] LABS: ALB/GLOB RATIO 1.3 (1.0-2.1); ALBUMIN 3.6 g/dL (3.5-5.0); ALT/SGPT 199 U/L (21-72); AST/SGOT 93 U/L (17-59); BLOOD UREA NITROGEN 16 mg/dL (9-20); GFR NON-AFRICAN AMERICAN > 60
[2018-06-27] MEDS: Pantoprazole 40 mg EC Tab PO SCH (09:26)
[2018-06-28 07:30] LABS: BASO # 0.1 K/uL (0.0-0.2); EOS # 0.2 K/uL (0.0-0.7); EOS % 2.4 % (0.0-4.0); HEMOGLOBIN 14.9 g/dL (12.0-18.0); LYMPH # 2.8 K/uL (1.0-4.3); LYMPH % 30.8 % (20.0-40.0); MEAN CELL VOLUME 91.8 fL (80.0-94.0); MEAN CORPUSCULAR HEMOGLOBIN 31.7 pg (27.0-31.0); MEAN CORPUSCULAR HGB CONC 34.5 g/dL (33.0-37.0); MEAN PLATELET VOLUME 6.5 fL (7.2-11.7); MONO # 0.8 K/uL (0.0-0.8); MONO % 8.8 % (0.0-10.0); NEUT # 5.2 K/uL (1.8-7.0); RBC 4.69 Mil/uL (4.40-5.90); WHITE BLOOD COUNT 9.1 K/uL (4.8-10.8)
[2018-06-28 07:50] LABS: ALB/GLOB RATIO 1.5 (1.0-2.1); ALBUMIN 4.2 g/dL (3.5-5.0); ALT/SGPT 222 U/L (21-72); AST/SGOT 88 U/L (17-59); BLOOD UREA NITROGEN 20 mg/dL (9-20); CALCIUM 9.5 mg/dl (8.6-10.4); GFR NON-AFRICAN AMERICAN > 60
--- NOTE | 2018-06-28 09:05 | CP.PCM.PN ---
<Louise Carlson - Last Filed: 06/28/18 09:03> Subjective - Date & Time of Evaluation Date of Evaluation: 06/28/18 Time of Evaluation: 09:03 - Subjective Subjective: Pt seen and examined at bedside. He just had breakfast. He denies cp, SOB, n/v. He wonders when he will be discharged. Objective - Vital Signs/Intake and Output Vital Signs (last 24 hours): Temp Pulse Resp BP Pulse Ox 97.9 F 69 20 101/58 L 97 06/27/18 23:00 06/28/18 00:35 06/27/18 23:00 06/27/18 23:00 06/27/18 23:00 - Medications Medications: Current Medications Acetaminophen (Tylenol 325mg Tab) 650 mg PO Q6 PRN PRN Reason: Headache Last Admin: 06/25/18 08:29 Dose: 650 mg Albuterol/Ipratropium (Duoneb 3 Mg/0.5 Mg (3 Ml) Ud) 3 ml INH RQ4 PRN PRN Reason: Wheezing Aspirin (Aspirin Chewable) 81 mg PO DAILY [facility] Last Admin: 06/27/18 09:26 Dose: 81 mg Clopidogrel Bisulfate (Plavix) 75 mg PO DAILY [facility] Last Admin: 06/27/18 09:26 Dose: 75 mg Heparin Sodium (Porcine) (Heparin) 5,000 units SC Q8 [facility] Last Admin: 06/28/18 06:10 Dose: 5,000 units Nicotine (Nicoderm Cq) 1 patch TD DAILY [facility] Last Admin: 06/27/18 09:26 Dose: 1 patch Pantoprazole Sodium (Protonix Ec Tab) 40 mg PO DAILY [facility] Last Admin: 06/27/18 09:26 Dose: 40 mg Rosuvastatin Calcium (Crestor) 10 mg PO HS [facility] Last Admin: 06/27/18 21:14 Dose: 10 mg - Labs Labs: 06/28/18 07:23 06/28/18 07:23 PT 10.9 SECONDS (9.7-12.2) 06/20/18 20:08 INR 1.0 06/20/18 20:08 APTT 38 SECONDS (21-34) H 06/20/18 20:08 - Constitutional Appears: Well, Non-toxic - Head Exam Head Exam: ATRAUMATIC, NORMAL INSPECTION, NORMOCEPHALIC - Eye Exam Eye Exam: EOMI, Normal appearance - Neck Exam Neck Exam: Normal Inspection - Respiratory Exam Respiratory Exam: Clear to Ausculation Bilateral, NORMAL BREATHING PATTERN - Cardiovascular Exam Cardiovascular Exam: REGULAR RHYTHM - GI/Abdominal Exam GI & Abdominal Exam: Soft, Normal Bowel Sounds - Extremities Exam Extremities Exam: Normal Inspection - Neurological Exam Neurological Exam: Alert, Awake - Psychiatric Exam Psychiatric exam: Normal Affect, Normal Mood - Skin Skin Exam: Normal Color, Warm Assessment and Plan - Assessment and Plan (Free Text) Assessment: 58 year old male with history of Asthma, Bipolar Disorder, Depression, Emphysema, HTN, Post Traumatic Stress Disorder, Seizures (alcoholic seziures) who presented for left sided weakness. Right MCA stroke - Brain MRI: small R MCA acute infarctions - anterior and posterior watershed territory infarctions. 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 Old infarctions in R centrum semiovale. Mild chronic microangiopathic changes and mild age-related global parenchymal volume loss. - CT head: No acute intracranial hemorrhage. small chronic appearing infarcts in deep white matter right cerebral hemisphere (right centrum semiovale). Smaller ischemic changes in R frontal subcortical region - ASA 81mg PO - Plavix 75mg PO daily - Neurology Dr. Palomino consulted, help appreciated Right ICA occlusion Moderate Left ICA stenosis - CTA of head and neck: complete occlusion of R ICA. Partially calcified plaque L carotid bifurcation-proximal L ICA 50-55%. [id number] partially calcified atherosclerotic plaque L carotid siphon. - Plavix 75mg PO daily - Vascular Dr. Fragoso consulted, help appreciated: No surgical intervention at this time, medical management PFO - Cardiology Dr. Marrero consulted, help appreciated - ECHO: nl LVEF and wall motion, no sig valvular pathology, normal RV size/function, normal PASP. Positive atrial septal aneurysm with bubbles crossing the atrial septum suggesting a PFO versus small ASD - QP/Qs ratio 1.3: 1 suggesting a small PFO - Venous dopplers: no DVT b/l - Tropx2 negative - EKG: NSR at 60 - Continue to monitor for arrhythmia History of HTN - continue to monitor History of asthma/emphysema - Duonebs Q4 PRN - CXR: No active disease History of bipolar disorder History of depression History of PTSD - Patient currently not depressed or anxious, denies suicidal or homicidal thoughts - Continue to monitor PPX: PT/OT: recommends acute rehab. GI PPX not indicated at this time DVT: Heparin 5000 sc q8h <NaomiOrlando H - Last Filed: 06/28/18 14:06> Objective - Vital Signs/Intake and Output Vital Signs (last 24 hours): Temp Pulse Resp BP Pulse Ox 97.6 F 60 20 128/81 95 06/28/18 08:00 06/28/18 08:00 06/28/18 08:00 06/28/18 08:00 06/28/18 08:00 - Medications Medications: Current Medications Acetaminophen (Tylenol 325mg Tab) 650 mg PO Q6 PRN PRN Reason: Headache Last Admin: 06/25/18 08:29 Dose: 650 mg Albuterol/Ipratropium (Duoneb 3 Mg/0.5 Mg (3 Ml) Ud) 3 ml INH RQ4 PRN PRN Reason: Wheezing Aspirin (Aspirin Chewable) 81 mg PO DAILY [facility] Last Admin: 06/28/18 09:32 Dose: 81 mg Clopidogrel Bisulfate (Plavix) 75 mg PO DAILY [facility] Last Admin: 06/28/18 09:32 Dose: 75 mg Heparin Sodium (Porcine) (Heparin) 5,000 units SC Q8 [facility] Last Admin: 06/28/18 13:04 Dose: 5,000 units Nicotine (Nicoderm Cq) 1 patch TD DAILY [facility] Last Admin: 06/28/18 09:32 Dose: 1 patch Pantoprazole Sodium (Protonix Ec Tab) 40 mg PO DAILY [facility] Last Admin: 06/28/18 09:32 Dose: 40 mg Rosuvastatin Calcium (Crestor) 10 mg PO HS [facility] Last Admin: 06/27/18 21:14 Dose: 10 mg - Labs Labs: 06/28/18 07:23 06/28/18 07:23 PT 10.9 SECONDS (9.7-12.2) 06/20/18 20:08 INR 1.0 06/20/18 20:08 APTT 38 SECONDS (21-34) H 06/20/18 20:08 Attending/Attestation - Attestation I have personally seen and examined this patient.: Yes I have fully participated in the care of the patient.: Yes I have reviewed all pertinent clinical information, including history, physical exam and plan: Yes Notes (Text): 06/28/18 14:04 Medical attending: Patient was seen and examined by me. 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 He does move about in his room on his own The tennative plan at this time would be to discharge patient possibly tommorow. But he does not want to go to a detention and is thinking ouf calling a friend to stay with Orlando Salgado
[2018-06-28] MEDS: Pantoprazole 40 mg EC Tab PO SCH (09:32)
[2018-06-29 08:21] LABS: BASO # 0.1 K/uL (0.0-0.2); BASO % 0.9 % (0.0-2.0); EOS # 0.2 K/uL (0.0-0.7); EOS % 2.3 % (0.0-4.0); HEMOGLOBIN 14.9 g/dL (12.0-18.0); LYMPH # 2.9 K/uL (1.0-4.3); LYMPH % 31.8 % (20.0-40.0); MEAN CELL VOLUME 91.6 fL (80.0-94.0); MEAN CORPUSCULAR HGB CONC 34.9 g/dL (33.0-37.0); MEAN PLATELET VOLUME 6.6 fL (7.2-11.7); MONO # 0.9 K/uL (0.0-0.8); MONO % 9.8 % (0.0-10.0); NEUT % 55.2 % (50.0-75.0); RBC 4.65 Mil/uL (4.40-5.90); RED CELL DISTRIBUTION WIDTH 14.2 % (11.5-14.5)
[2018-06-29 08:45] LABS: ALB/GLOB RATIO 1.4 (1.0-2.1); ALT/SGPT 241 U/L (21-72); AST/SGOT 107 U/L (17-59); BLOOD UREA NITROGEN 21 mg/dL (9-20); CALCIUM 8.8 mg/dl (8.6-10.4); GFR NON-AFRICAN AMERICAN > 60
[2018-06-29 08:57] VITALS: BP 136/69; PULSE 68; TEMP 98.3; O2SAT 95
[2018-06-29] MEDS: Pantoprazole 40 mg EC Tab PO SCH (09:41)
[2018-06-29] MEDS ORDERED: Influenza Vaccine 60 MCG/0.5 ML SYR (3 yr & up) IM ONE (11:20)
[2018-06-29 11:23] LABS: HDL CHOLESTEROL 42 mg/dL (30-70)
[2018-06-29 11:34] LABS: LDL CHOLESTEROL 92 mg/dL (0-129)
--- NOTE | 2018-06-29 15:14 | CP.PCM.DIS ---
Provider - Provider Date of Admission: 06/20/18 21:56 Attending physician: Nicholas Orosco MD Consults: Dr. Junior Marrero Time Spent in preparation of Discharge (in minutes): 45 Hospital Course - Lab Results Lab Results: Most Recent Lab Values WBC 9.0 K/uL (4.8-10.8) 06/29/18 08:13 RBC 4.65 Mil/uL (4.40-5.90) 06/29/18 08:13 Hgb 14.9 g/dL (12.0-18.0) 06/29/18 08:13 Hct 42.6 % (35.0-51.0) 06/29/18 08:13 MCV 91.6 fL (80.0-94.0) 06/29/18 08:13 MCH 32.0 pg (27.0-31.0) H 06/29/18 08:13 MCHC 34.9 g/dL (33.0-37.0) 06/29/18 08:13 RDW 14.2 % (11.5-14.5) 06/29/18 08:13 Plt Count 335 K/uL (130-400) 06/29/18 08:13 MPV 6.6 fL (7.2-11.7) L 06/29/18 08:13 Neut % (Auto) 55.2 % (50.0-75.0) 06/29/18 08:13 Lymph % (Auto) 31.8 % (20.0-40.0) 06/29/18 08:13 [place] % (Auto) 9.8 % (0.0-10.0) 06/29/18 08:13 Eos % (Auto) 2.3 % (0.0-4.0) 06/29/18 08:13 Baso % (Auto) 0.9 % (0.0-2.0) 06/29/18 08:13 Neut # (Auto) 5.0 K/uL (1.8-7.0) 06/29/18 08:13 Lymph # (Auto) 2.9 K/uL (1.0-4.3) 06/29/18 08:13 [place] # (Auto) 0.9 K/uL (0.0-0.8) H 06/29/18 08:13 Eos # (Auto) 0.2 K/uL (0.0-0.7) 06/29/18 08:13 Baso # (Auto) 0.1 K/uL (0.0-0.2) 06/29/18 08:13 PT 10.9 SECONDS (9.7-12.2) 06/20/18 20:08 INR 1.0 06/20/18 20:08 APTT 38 SECONDS (21-34) H 06/20/18 20:08 Sodium 138 mmol/L (132-148) 06/29/18 08:13 Potassium 4.1 mmol/L (3.6-5.2) 06/29/18 08:13 Chloride 98 mmol/L (98-107) 06/29/18 08:13 Carbon Dioxide 27 mmol/L (22-30) 06/29/18 08:13 Anion Gap 17 (10-20) 06/29/18 08:13 BUN 21 mg/dL (9-20) H 06/29/18 08:13 Creatinine 0.8 mg/dL (0.8-1.5) 06/29/18 08:13 Est GFR ( Amer) > 60 06/29/18 08:13 Est GFR (Non-Af Amer) > 60 06/29/18 08:13 POC Glucose (mg/dL) 124 mg/dL (65-110) H 06/29/18 11:09 Random Glucose 93 mg/dL (75-110) 06/29/18 08:13 Hemoglobin A1c 5.6 % (4.2-6.5) 06/20/18 20:08 Calcium 8.8 mg/dl (8.6-10.4) 06/29/18 08:13 Phosphorus 3.4 mg/dL (2.5-4.5) 06/29/18 08:13 Magnesium 1.9 mg/dL (1.6-2.3) 06/29/18 08:13 Total Bilirubin 0.7 mg/dL (0.2-1.3) 06/29/18 08:13 AST 107 U/L (17-59) H D 06/29/18 08:13 ALT 241 U/L (21-72) H 06/29/18 08:13 Alkaline Phosphatase 71 U/L (38-126) 06/29/18 08:13 Troponin I < 0.0120 ng/mL (0.00-0.120) 06/21/18 16:25 Total Protein 6.8 g/dL (6.3-8.3) 06/29/18 08:13 Albumin 4.0 g/dL (3.5-5.0) 06/29/18 08:13 Globulin 2.8 gm/dL (2.2-3.9) 06/29/18 08:13 Albumin/Globulin Ratio 1.4 (1.0-2.1) 06/29/18 08:13 Triglycerides 159 mg/dL (0-149) H 06/29/18 08:13 Cholesterol 149 mg/dL (0-199) 06/29/18 08:13 LDL Cholesterol Direct 92 mg/dL (0-129) 06/29/18 08:13 HDL Cholesterol 42 mg/dL (30-70) 06/29/18 08:13 Vitamin B12 953 pg/mL (239-931) H 06/24/18 21:28 25-OH Vitamin D Total 36.7 NG/ML (30.0-100.0) 06/24/18 21:28 Folate 14.2 ng/mL 06/24/18 21:28 Homocysteine 5.7 umol/L (6.6-14.8) L 06/23/18 08:27 Urine Opiates Screen Negative (NEGATIVE) 06/26/18 18:42 Urine Methadone Screen Negative (NEGATIVE) 06/26/18 18:42 Ur Barbiturates Screen Negative (NEGATIVE) 06/26/18 18:42 Ur Phencyclidine Scrn Negative (NEGATIVE) 06/26/18 18:42 Ur Amphetamines Screen Negative (NEGATIVE) 06/26/18 18:42 U Benzodiazepines Scrn Negative (NEGATIVE) 06/26/18 18:42 U Oth Cocaine Metabols Negative (NEGATIVE) 06/26/18 18:42 U Cannabinoids Screen Positive (NEGATIVE) H 06/26/18 18:42 RPR Nonreactive (NONREACTIVE) 06/26/18 13:57 Hepatitis A IgM Ab Negative (NEGATIVE) 06/26/18 13:57 Hep Bs Antigen Negative (NEGATIVE) 06/26/18 13:57 Hep B Core IgM Ab Negative (NEGATIVE) 06/26/18 13:57 Hepatitis C Antibody Negative (NEGATIVE) 06/26/18 13:57 HIV 1&2 Antibody Screen Negative (NEGATIVE) 06/26/18 13:57 Blood Type O NEGATIVE 06/20/18 20:08 Antibody Screen Negative 06/20/18 20:08 - Hospital Course Hospital Course: Hospital Admission Mr. Shin is a 58-year-old man with a past medical history of Asthma, Bipolar Disorder, Depression, Emphysema, HTN, Post Traumatic Stress Disorder, Seizures (alcoholic seziures), who presented to the ED in the AM after waking up with left side weakness. He was last normal the previous night, but had been having some left side weakness intermittently for several days. A non-contrast CT scan of the head was done and showed chronic right cerebral infarcts. CTA of the head/neck showed complete right ICA occlusion. He was not a candidate for IV tPA due to being outside the time window and was not a candidate for thrombectomy due to infarcts appearing on CT head in right cerebral region that were likely chronic or subacute. Hospital Course Patient is a 58 yo male who was admitted for stroke like symptoms. On brain imaging it was found that patient had acute infarcts in the MCA specifically in the frontal and parietal regions on the right with left sided weakness as a result. Patient did not receive t-PA as he was outside of the window for treatment. Patient had imaging of his neck blood vessels which showed complete occlusion of the right internal carotid artery making the patient a non surgical candidate for treatment. Patient also had a 50-52% occlusion of the left internal carotid artery. Dr. Palomino was consulted for the stroke as well. Patient had echo which showed a possible PFO vs ASD. Patient was treated medically with aspirin, plavix, crestor, and physical therapy. Patient regained left upper and lower extremity movement with physical therapy concluding that patient would benefit with a straight cane for ambulation. Discharge Plan 1. Patient is stable for discharge to home as per Dr. Neumann. 2. Patient should resume all of his home medications. Patient will need to continue taking Aspirin 81mg by mouth once daily, Crestor 10mg by mouth once at night, Plavix 75 mg by mouth once daily, Multivitamin by mouth once daily, and Ensure liquid once daily. Patient will need to followup to have repeat liver function tests within two weeks. 3. Patient was educated to followup in outpatient clinic because he has no insurance. Patient was educated to return to hospital if symptoms worsen or recur. Patient understands the plan as above and agrees. Discharge Exam - Head Exam Head Exam: ATRAUMATIC, NORMAL INSPECTION, NORMOCEPHALIC - Eye Exam Eye Exam: EOMI, Normal appearance. absent: Nystagmus, Scleral icterus - Respiratory Exam Respiratory Exam: Clear to PA & Lateral, NORMAL BREATHING PATTERN. absent: Rales, Rhonchi, Wheezes - Cardiovascular Exam Cardiovascular Exam: REGULAR RHYTHM, +S1, +S2. absent: Tachycardia, Systolic Murmur - GI/Abdominal Exam GI & Abdominal Exam: Normal Bowel Sounds, Soft. absent: Diminished Bowel Sounds, Distended, Firm, Guarding, Tenderness - Extremities Exam Extremities exam: normal inspection - Neurological Exam Neurological exam: Alert, Oriented x3 Additional comments: ambulates with straight cane - Psychiatric Exam Psychiatric exam: Normal Affect, Normal Mood - Skin Skin Exam: Intact, Normal Color Discharge Plan - Discharge Medications Prescriptions: Aspirin [Aspirin Chewable] 81 mg PO DAILY #30 chew Clopidogrel [Plavix] 75 mg PO DAILY #14 tab Lactose-Reduced Food [Ensure Plus] 237 ml PO DAILY #14 liquid Multivitamin [Multi-Vitamin Daily] 1 tab PO DAILY #14 tablet Nicotine 14 mg/24 hr [Nicoderm CQ] 1 each TD DAILY 14 Days patch Rosuvastatin Calcium [Crestor] 10 mg PO HS #14 tab - Follow Up Plan Condition: SERIOUS Disposition: HOME/ ROUTINE Instructions: Smoking: Not Just Harmful to Your Lungs and Heart, Stroke (DC), Quitting Smoking Additional Instructions: 1. Patient is stable for discharge to home as per Dr. Neumann. 2. Patient should resume all of his home medications. Patient will need to continue taking Aspirin 81mg by mouth once daily, Crestor 10mg by mouth once at night, Plavix 75 mg by mouth once daily, Multivitamin by mouth once daily, and Ensure liquid once daily. Patient will need to followup to have repeat liver function tests within two weeks. 3. Patient was educated to followup in outpatient clinic because he has no insurance. Patient was educated to return to hospital if symptoms worsen or recur. Patient understands the plan as above and agrees. Referrals: [facility] [Outside]
== END 2018-06-29 12:57 | disposition home or self-care (01) | DRG 65 ==
LOC: C.ER 19:05 → C.9E 21:56 → C.5S 06-21 11:35
PROVIDERS: ADMIT Internal Medicine Nephrology; ATTEND Family Medicine
DX: I63.233 Cerebral infarction due to unspecified occlusion or stenosis of bilateral carotid arteries (principal); G81.94 Hemiplegia, unspecified affecting left nondominant side; Q21.1 Atrial septal defect; F12.10 Cannabis abuse, uncomplicated; F17.210 Nicotine dependence, cigarettes, uncomplicated; F31.9 Bipolar disorder, unspecified; F43.10 Post-traumatic stress disorder, unspecified; H54.7 Unspecified visual loss; F10.21 Alcohol dependence, in remission; Z59.0 Homelessness; I10 Essential (primary) hypertension; J45.909 Unspecified asthma, uncomplicated

== ENCOUNTER 2018-07-30 21:17 | Emergency (ER) | payer MEDICAID, OTHER ==
--- NOTE | 2018-07-30 21:52 | C.PDOC ---
History Of Present Illness 58 year old male past medical history of Asthma, Bipolar Disorder, Depression, Emphysema, HTN, Post Traumatic Stress Disorder, Seizures (alcoholic seziures) left side weakness intermittently for several days is brought to the ED by EMS for evaluation of new onset left foot/lower leg going on for past several hours. Patient was recently discharged after being hospitalized after a non-contrast CT scan of the head was done and showed chronic right cerebral infarcts. CTA of the head/neck showed complete right ICA occlusion. Patient has no residual deficits from his previous stroke, patient walks with a cane. Patient today states he was standing and suddenly felt pain in the bottom of his left foot ex tending towards his Achilles and lower leg area. Patient states pain worsens with weight bearing. Patient denies weakness, back pain, recent injury, fall, trauma, CP, SOB, headache, palpitations. DC 06/29/18 Mr. Shin is a 58-year-old man with a past medical history of Asthma, Bipolar Disorder, Depression, Emphysema, HTN, Post Traumatic Stress Disorder, Seizures (alcoholic seziures) left side weakness intermittently for several days. A non-contrast CT scan of the head was done and showed chronic right cerebral infarcts. CTA of the head/neck showed complete right ICA occlusion. He was not a candidate for IV tPA due to being outside the time window and was not a candidate for thrombectomy due to infarcts appearing on CT head in right cerebral region that were likely chronic or subacute. Hospital Course Patient is a 58 yo male who was admitted for stroke like symptoms. On brain imaging it was found that patient had acute infarcts in the MCA specifically in the frontal and parietal regions on the right with left sided weakness as a result. Patient did not receive t-PA as he was outside of the window for treatment. Patient had imaging of his neck blood vessels which showed complete occlusion of the right internal carotid artery making the patient a non surgical candidate for treatment. Patient also had a 50-52% occlusion of the left internal carotid artery. Dr. Palomino was consulted for the stroke as well. Patient had echo which showed a possible PFO vs ASD. Patient was treated medically with aspirin, plavix, crestor, and physical therapy. Patient regained left upper and lower extremity movement with physical therapy concluding that patient would benefit with a straight cane for ambulation. Time Seen by Provider: 07/30/18 21:49 Chief Complaint (Nursing): Lower Extremity Problem/Injury History Per: Patient, Other (prior records) History/Exam Limitations: no limitations Onset/Duration Of Symptoms: Hrs Current Symptoms Are (Timing): Still Present Reports Recently: Hospitalized Recent travel outside of the [place]: No Additional History Per: Patient, Prior Records Past Medical History Reviewed: Historical Data, Nursing Documentation, Vital Signs Vital Signs: Last Vital Signs Temp 97.8 F 07/30/18 21:30 Pulse 76 07/30/18 21:30 Resp 18 07/30/18 21:30 BP 168/79 H 07/30/18 21:30 Pulse Ox 96 07/30/18 21:30 - Medical History PMH: Anxiety, Asthma, Bipolar Disorder, CVA, Depression, Emphysema, HTN, Post Traumatic Stress Disorder, Chronic Kidney Disease, Seizures (alcoholic seziures), TIA Surgical History: No Surg Hx - [facility] Procedures ALCOHOL DETOXIFICATION (09/04/13) OTHER GROUP THERAPY (03/04/13) Family History: States: Unknown Family Hx - Social History Hx Tobacco Use: Yes Hx Alcohol Use: Yes (hx of 5 years ago) Hx Substance Use: Yes (cannobis) - Immunization History Hx Tetanus Toxoid Vaccination: No Hx Influenza Vaccination: No Hx Pneumococcal Vaccination: No Review Of Systems Constitutional: Negative for: Fever, Chills Eyes: Negative for: Vision Change Cardiovascular: Negative for: Chest Pain, Palpitations Respiratory: Negative for: Shortness of Breath Gastrointestinal: Negative for: Nausea, Vomiting, Abdominal Pain Musculoskeletal: Positive for: Leg Pain, Foot Pain. Negative for: Back Pain Skin: Negative for: Rash Neurological: Negative for: Weakness, Numbness, Headache, Dizziness Physical Exam - Physical Exam Appears: Non-toxic, No Acute Distress Skin: Normal Color, Warm, Dry, No Pale Head: Atraumatic, Normacephalic Eye(s): bilateral: Normal Inspection Oral Mucosa: Moist Neck: Normal ROM, Supple Chest: Symmetrical Cardiovascular: Rhythm Regular Respiratory: Normal Breath Sounds, No Rales, No Rhonchi, No Wheezing Gastrointestinal/Abdominal: Soft, No Tenderness, No Guarding, No Rebound Extremity: Capillary Refill (< 2 seconds), No Swelling Extremity: Bilateral: Atraumatic, Normal Color And Temperature Pulses: Left Dorsalis Pedis: Normal, Right Dorsalis Pedis: Normal Neurological/Psych: Oriented x3, Normal Speech, Normal Cognition Gait: With Assistance (cane) Additional Physical Exam Comments: SEE [facility] ED Course And Treatment ECG: Interpreted By Me, Viewed By Me ECG Rhythm: 1st Degree HB Rate From EC (BPM) O2 Sat by Pulse Oximetry: 96 (ON RA) Pulse Ox Interpretation: Normal - Other Rad Left foot X-Ray X-Ray: Interpreted by Me, Viewed By Me Interpretation: No fracture or dislocation Progress - Re-Evaluation Re-evaluation Note: 07/30/18 22:21 D/W PODIATRY RESIDENT WILL EVAL INER 07/31/18 00:06 sp podiatry eval: ADVISES VENOUS DUPLEX IN MORNING. WILL DOSE LOVENOX - Data Reviewed Data Reviewed: Diagnostic imaging, Old records Medical Decision Making Medical Decision Making: Plan: * EKG * percocet 1 tab PO * Left foot X-ray Disposition Counseled Patient/Family Regarding: Studies Performed, Diagnosis, Need For Followup - Disposition Referrals: [facility] EM[facility]Y [facility]MENT [Provider Group] Disposition: HOME/ ROUTINE Disposition Time: 00:17 Condition: IMPROVED Additional Instructions: Return TO THE ER BETWEEN 0800 AND 2 PM ON 07/31 FOR VENOUS DOPPLER TEST. Instructions: Metatarsalgia (DC) Forms: [employer] (Latvian) - Clinical Impression Clinical Impression: Foot pain - Scribe Statement The provider has reviewed the documentation as recorded by the Scribe Bo Silva All medical record entries made by the Scribe were at my direction and personally dictated by me. I have reviewed the chart and agree that the record accurately reflects my personal performance of the history, physical exam, medical decision making, and the department course for this patient. I have also personally directed, reviewed, and agree with the discharge instructions and disposition.
[2018-07-30] MEDS ORDERED: Oxycodone/Acetaminophen 5/325 mg Tab PO STA (22:17)
[2018-07-30] MEDS ORDERED: Oxycodone/Acetaminophen 5/325 mg Tab ONE (22:48)
--- NOTE | 2018-07-30 22:59 | CP.PCM.CON ---
History of Present Illness - History of Present Illness History of Present Illness: Podiatry Consult Note - Dr. Jewell 58 year old male patient PMHx asthma, bipolar disorder, depression, emphysema, HTN, PTSD, alcoholic seizures, hx of CVA seen and evaluated in ED for new onset LLE pain. Of note, patient was recently admitted for right cerebral infarcts and occlusion of right internal carotid artery - as a result developed left sided weakness. Patient regained left sided movement with physical therapy however now uses a cane for assistance with ambulation. At present, patient complains of new left foot pain which started at approximately 5PM today; states that he felt like he stepped on something in his left heel and now whenever he puts his left foot down pain radiates from his heel up into the back of his leg. Patient states he forgot to take his bloodthinner medications this evening (Plavix, Aspirin). Patient denies treatment prior to arrival; states he was given pain medication in ED which did not alleviate symptoms. Admits to having a headache; denies worsening left sided weakness, fall, n/v/d, f/c, chest pain, sob. Review of Systems - Review of Systems All systems: reviewed and no additional remarkable complaints except (as per HPI) Past Patient History - Infectious Disease Hx of Infectious Diseases: None - Past Medical History & Family History Past Medical History?: Yes - Past Social History Smoking Status: Heavy Smoker > 10 Cigarettes Daily - CARDIAC Hx Hypertension: Yes - PULMONARY Hx Asthma: Yes Hx Emphysema: Yes - NEUROLOGICAL Hx Seizures: Yes (alcoholic seziures) Hx Transient Ischemic Attacks (TIA): Yes - HEENT Hx Blind: Yes (periods of blindness) - RENAL Hx Chronic Kidney Disease: Yes - ENDOCRINE/METABOLIC Hx Endocrine Disorders: Yes - HEMATOLOGICAL/ONCOLOGICAL Hx Cancer: No - INTEGUMENTARY Hx Dermatological Problems: No - MUSCULOSKELETAL/RHEUMATOLOGICAL Hx Falls: No - GASTROINTESTINAL Other/Comment: RECTAL BLEEDING - PSYCHIATRIC Hx Anxiety: Yes Hx Bipolar Disorder: Yes Hx Depression: Yes Hx Post Traumatic Stress Disorder: Yes Hx Substance Use: Yes (cannobis) - SURGICAL HISTORY Hx Surgeries: Yes Hx Orthopedic Surgery: Yes (RIGHT 4TH FINGER) - ANESTHESIA Hx Anesthesia: Yes Meds Allergies/Adverse Reactions: Allergies Allergy/AdvReac Type Severity Reaction Status Date / Time No Known Allergies Allergy Verified 07/31/18 10:37 Physical Exam - Constitutional Appears: Non-toxic, No Acute Distress - Extremities Exam Additional comments: VASC: DP and PT pulses nonpalpable but audiple on doppler examination. Temperature gradient cool to cool with no increase in warmth to LLE. Minimal nonpitting edema noted to LLE. Hair growth absent. NEURO: Gross sensation intact. DERM: Dependent rubor, pallor with elevation b/l LE L>R. Skin atrophic. Severe xerosis in moccasin distribution b/l. Nails brittle, discolored, incurvated. No open lesions present. ORTHO: Pain on palpation noted to left heel. Pain upon FWB LLE. Tenderness upon calf compression LLE. Muscle strength 5/5 for all dorsiflexors, plantarflexors, inverters, and everters b/l. - Neurological Exam Neurological exam: Alert, Oriented x3 - Psychiatric Exam Psychiatric exam: Normal Affect, Normal Mood Results - Vital Signs Recent Vital Signs: Last Vital Signs Temp 97.8 F 07/30/18 21:30 Pulse 76 07/30/18 21:30 Resp 18 07/30/18 21:30 BP 168/79 H 07/30/18 21:30 Pulse Ox 96 07/30/18 22:39 Assessment & Plan - Assessment and Plan (Free Text) Assessment: 58M with left lower extremity pain, r/o DVT Plan: Patient seen and evaluated Discussed with attending, Dr. Jewell Left foot XR reviewed: Unremarkable Advised patient to return to ED for DVT workup Lovenox given in ED Pain control per ED Thank you for the consult
[2018-07-31] MEDS ORDERED: Oxycodone/Acetaminophen 5/325 mg Tab PO STA (00:18)
[2018-07-31] MEDS ORDERED: Enoxaparin 40 mg Syringe SC STA (00:18)
[2018-07-31] MEDS ORDERED: Enoxaparin 80 mg Syringe ONE (00:26)
[2018-07-31] MEDS ORDERED: Oxycodone/Acetaminophen 5/325 mg Tab ONE (00:26)
[2018-07-31 01:01] VITALS: BP 116/62; PULSE 72; RESP 16; TEMP 98.8; O2SAT 99
--- NOTE | 2018-07-31 10:53 | RAD ---
Date of service: 07/30/2018 PROCEDURE: Left Foot Radiographs. HISTORY: Pain COMPARISON: None. FINDINGS: BONES: Bone alignment and mineralization are normal. There is no acute displaced fracture or bone destruction. JOINTS: Normal. SOFT TISSUES: Normal. OTHER FINDINGS: None. IMPRESSION: No acute fracture or dislocation.
--- NOTE | 2018-07-31 11:55 | CARD ---
APPROVED REPORT Date of service: 07/30/2018 EKG Measurement Heart [id number] <Conclusion> Sinus rhythm with 1st degree AV block Otherwise normal ECG
== END 2018-07-31 01:00 | disposition home or self-care (01) ==
LOC: C.ER 21:17
DX: M79.672 Pain in left foot (principal); F17.210 Nicotine dependence, cigarettes, uncomplicated; I12.9 Hypertensive chronic kidney disease with stage 1 through stage 4 chronic kidney disease, or unspecified chronic kidney disease; N18.9 Chronic kidney disease, unspecified
CPT/HCPCS: 73630; 93005; 96372; 99285; J1650

== ENCOUNTER 2018-07-31 10:25 | Emergency (ER) | payer OTHER ==
[2018-07-31 10:38] VITALS: BMI 23.1
--- NOTE | 2018-07-31 13:00 | C.PDOC ---
History Of Present Illness 58 y/o male presents to the ED for evaluation of left lower extremity pain. Patient was seen here yesterday, worked up and treated with Lovenox. He was instructed to return today for doppler study of the LLE. Patient complains only of left lower leg pain. He denies any chest pain, SOB, fevers, chills, or change in sensation. Time Seen by Provider: 07/31/18 11:39 Chief Complaint (Nursing): Lower Extremity Problem/Injury History Per: Patient History/Exam Limitations: no limitations Onset/Duration Of Symptoms: Days Current Symptoms Are (Timing): Still Present Past Medical History Reviewed: Historical Data, Nursing Documentation, Vital Signs Vital Signs: Last Vital Signs Temp 98.0 F 07/31/18 10:37 Pulse 80 07/31/18 10:37 Resp 18 07/31/18 10:37 BP 137/81 07/31/18 10:37 Pulse Ox 96 07/31/18 10:37 - Medical History PMH: Anxiety, Asthma, Bipolar Disorder, CVA, Depression, Emphysema, HTN, Post Traumatic Stress Disorder, Chronic Kidney Disease, Seizures (alcoholic seziures), TIA - [facility] ALCOHOL DETOXIFICATION (09/04/13) OTHER GROUP THERAPY (03/04/13) Family History: States: Unknown Family Hx - Social History Hx Tobacco Use: Yes Hx Alcohol Use: Yes (hx of 5 years ago) Hx Substance Use: Yes (cannobis) - Immunization History Hx Tetanus Toxoid Vaccination: No Hx Influenza Vaccination: No Hx Pneumococcal Vaccination: No Review Of Systems Except As Marked, All Systems Reviewed And Found Negative. Constitutional: Negative for: Fever, Chills Cardiovascular: Negative for: Chest Pain Respiratory: Negative for: Shortness of Breath Musculoskeletal: Positive for: Leg Pain (left calf pain) Neurological: Negative for: Weakness, Numbness, Incoordination Physical Exam - Physical Exam Appears: Well, Non-toxic, No Acute Distress Skin: Warm, Dry, No Rash Head: Atraumatic, Normacephalic Eye(s): bilateral: Normal Inspection Neck: Normal ROM Chest: Symmetrical Respiratory: No Accessory Muscle Use, Other (Speaking in full sentences) Extremity: Tenderness (to the left posterior hindfoot), Calf Tenderness (mild left calf tenderness), No Deformity, No Swelling, Other (Achilles intact) Pulses: Left Dorsalis Pedis: Normal, Right Dorsalis Pedis: Normal Neurological/Psych: Oriented x3, Normal Motor, Normal Sensation Gait: Steady ED Course And Treatment O2 Sat by Pulse Oximetry: 96 (RA) Pulse Ox Interpretation: Normal - CT Scan/US Doppler US - LLE Other Rad Studies (CT/US): Read By Radiologist CT/US Interpretation: Preliminary report - Negative for DVT Medical Decision Making Medical Decision Making: Impression: Calf pain Plan: --Doppler study, LLE Vascular study negative for DVT, patient notified. Plan is to d/c patient home with rx for naproxen. Advised patient to follow up with PMD. Disposition Counseled Patient/Family Regarding: Studies Performed, Diagnosis, Need For Followup - Disposition Referrals: Podiatry Clinic [Outside] Disposition: HOME/ ROUTINE Disposition Time: 12:58 Condition: STABLE Additional Instructions: follow up with your doctor within 2 days call to make an appointment take medications as prescribed return to ER if symptoms worsens or progress Prescriptions: Naproxen [Naprosyn] 500 mg PO BID PRN #16 tab PRN Reason: Pain, Moderate (4-7) Instructions: Plantar Fasciitis Exercises, Achilles Tendinopathy Exercises Forms: General Discharge Instructions, [facility] ([place]), Work Excuse - Clinical Impression Clinical Impression: Calf pain - Scribe Statement The provider has reviewed the documentation as recorded by the Martha Fernandez Provider Attestation: All medical record entries made by the Martha were at my direction and personally dictated by me. I have reviewed the chart and agree that the record accurately reflects my personal performance of the history, physical exam, medical decision making, and the department course for this patient. I have also personally directed, reviewed, and agree with the discharge instructions and disposition.
[2018-07-31 13:19] VITALS: BP 130/80; PULSE 78; RESP 20; TEMP 98
[2018-07-31 13:39] VITALS: O2SAT 96
--- NOTE | 2018-07-31 16:47 | VASCLAB ---
Date of service: 07/31/2018 PROCEDURE: Left Lower Extremity Venous Duplex Exam. HISTORY: leg pain PRIORS: None. TECHNIQUE: Left common femoral, femoral, popliteal and posterior tibial, peroneal and great saphenous veins were evaluated. Flow was assessed with color Doppler, compressibility, assessment of phasic flow and augmentation response. Report prepared by DILSHAD Nickerson, RVT FINDINGS: LEFT: 1. Common Femoral Vein: 1.1. Compressibility - Fully compressible: Thrombus - None : Flow - Phasic: Augmentation -Normal: Reflux - None. 2. Femoral Vein: 2.1. Compressibility - Fully compressible: Thrombus - None: Flow - Phasic: Augmentation -Normal: Reflux - None. 3. Popliteal Vein: 3.1. Compressibility - Fully compressible: Thrombus - None: Flow - Phasic: Augmentation -Normal: Reflux - None. 4. Posterior Tibial Vein: 4.1. Compressibility - Fully compressible: Thrombus - None: Flow - Phasic: Augmentation -Normal: Reflux - None. 5. Peroneal Vein: 5.1. Compressibility - Fully compressible: Thrombus - None: Flow - Phasic: Augmentation -Normal: Reflux - None. 6. Great Saphenous Vein: 6.1. Compressibility - Fully compressible: Thrombus - None: Flow - Phasic: Augmentation - Normal: Reflux - None. OTHER FINDINGS: IMPRESSION: No evidence of deep or superficial vein thrombosis of the left lower extremity with excellent venous flow. Normal valve function noted of the left side. Normal venous flow noted in the right common femoral vein.
== END 2018-07-31 13:20 | disposition home or self-care (01) ==
LOC: C.ER 10:25
DX: M79.662 Pain in left lower leg (principal)